=== PATIENT | female | born 1950 | race Two or more races ===

== ENCOUNTER → 2017-09-13 | Outpatient (CLI) | payer MEDICARE, OTHER ==
[2017-09-13 08:30] LABS: ABSOLUTE BASOPHILS # (AUTO) 0.1 10^3/uL (0.0-0.2); ABSOLUTE EOSINOPHILS # (AUTO) 0.3 10^3/uL (0.0-0.6); ABSOLUTE MONOCYTES (AUTO) 0.3 10^3/uL (0.1-1.4); ABSOLUTE NEUT (AUTO) 3.1 10^3/uL (1.7-8.2); BASOPHILS % (AUTO) 1.8 % (0-2); EOSINOPHILS % (AUTO) 4.5 % (0-6); HEMATOCRIT 40.6 % (36.0-47.0); HEMOGLOBIN 13.7 g/dL (12.0-15.5); LYMPHOCYTES % (AUTO) 34.5 % (13-45); MEAN CORPUSCULAR HEMOGLOBIN 28.7 pg (27.0-33.4); MEAN CORPUSCULAR HGB CONC 33.6 g/dL (32.0-36.0); MEAN CORPUSCULAR VOLUME 85 fl (80-97); MONOCYTES % (AUTO) 5.6 % (3-13); PLATELET COUNT 339 10^3/uL (150-450); RED BLOOD COUNT 4.76 10^6/uL (3.72-5.28); RED CELL DISTRIBUTION WIDTH 13.7 % (11.5-14.0); SEGMENTED NEUTROPHILS % (AUTO) 53.6 % (42-78); TOTAL CELLS COUNTED % (AUTO) 100 %; WHITE BLOOD COUNT 5.7 10^3/uL (4.0-10.5)
[2017-09-13 08:55] LABS: ALANINE AMINOTRANSFERASE 44 U/L (9-52); ALBUMIN 4.7 g/dL (3.5-5.0); ALKALINE PHOSPHATASE 122 U/L (38-126); ANION GAP 15 (5-19); ASPARTATE AMINO TRANSFERASE 29 U/L (14-36); BILIRUBIN,DIRECT 0.2 mg/dL (0.0-0.4); BILIRUBIN,TOTAL 0.4 mg/dL (0.2-1.3); BLOOD UREA NITROGEN 23 mg/dL (7-20); CALCIUM 10.5 mg/dL (8.4-10.2); CARBON DIOXIDE 29 mmol/L (22-30); CHLORIDE 102 mmol/L (98-107); GLUCOSE 144 mg/dL (75-110); POTASSIUM 4.2 mmol/L (3.6-5.0); SODIUM 145.8 mmol/L (137-145); TOTAL PROTEIN 7.7 g/dL (6.3-8.2); TRIGLYCERIDES 193 mg/dL (<150)
[2017-09-13 09:06] LABS: DIRECT LDL 101 mg/dL (<100)
[2017-09-13 09:13] LABS: VLDL CHOLESTEROL 38.6 mg/dL (10-31)
== END ==
LOC: OD 07:37
PROVIDERS: ATTEND Internal Medicine
DX: E11.9 Type 2 diabetes mellitus without complications (principal); I10 Essential (primary) hypertension; E78.5 Hyperlipidemia, unspecified; R53.83 Other fatigue
CPT/HCPCS: 36415; 80053; 80061; 83036; 84443; 85025

== ENCOUNTER → 2018-03-07 | Outpatient (CLI) | payer MEDICARE, OTHER ==
[2018-03-07 08:29] LABS: ABSOLUTE BASOPHILS # (AUTO) 0.1 10^3/uL (0.0-0.2); ABSOLUTE EOSINOPHILS # (AUTO) 0.5 10^3/uL (0.0-0.6); ABSOLUTE LYMPHOCYTES (AUTO) 2.1 10^3/uL (0.5-4.7); ABSOLUTE MONOCYTES (AUTO) 0.5 10^3/uL (0.1-1.4); ABSOLUTE NEUT (AUTO) 4.9 10^3/uL (1.7-8.2); BASOPHILS % (AUTO) 1.9 % (0-2); HEMATOCRIT 40.3 % (36.0-47.0); HEMOGLOBIN 13.7 g/dL (12.0-15.5); LYMPHOCYTES % (AUTO) 25.7 % (13-45); MEAN CORPUSCULAR HEMOGLOBIN 28.5 pg (27.0-33.4); MEAN CORPUSCULAR HGB CONC 33.9 g/dL (32.0-36.0); MEAN CORPUSCULAR VOLUME 84 fl (80-97); MONOCYTES % (AUTO) 5.6 % (3-13); PLATELET COUNT 361 10^3/uL (150-450); RED CELL DISTRIBUTION WIDTH 13.7 % (11.5-14.0); SEGMENTED NEUTROPHILS % (AUTO) 60.8 % (42-78); TOTAL CELLS COUNTED % (AUTO) 100 %; WHITE BLOOD COUNT 8.1 10^3/uL (4.0-10.5)
[2018-03-07 08:57] LABS: ALANINE AMINOTRANSFERASE 36 U/L (9-52); ALBUMIN 4.6 g/dL (3.5-5.0); ALKALINE PHOSPHATASE 155 U/L (38-126); ANION GAP 15 (5-19); ASPARTATE AMINO TRANSFERASE 31 U/L (14-36); BILIRUBIN,DIRECT 0.2 mg/dL (0.0-0.4); BILIRUBIN,TOTAL 0.6 mg/dL (0.2-1.3); BLOOD UREA NITROGEN 17 mg/dL (7-20); CALCIUM 10.7 mg/dL (8.4-10.2); CARBON DIOXIDE 26 mmol/L (22-30); CHLORIDE 103 mmol/L (98-107); CHOLESTEROL 214.08 mg/dL (0-200); GLUCOSE 140 mg/dL (75-110); POTASSIUM 4.4 mmol/L (3.6-5.0); SODIUM 143.6 mmol/L (137-145); TOTAL PROTEIN 7.9 g/dL (6.3-8.2); TRIGLYCERIDES 239 mg/dL (<150)
[2018-03-07 09:08] LABS: DIRECT LDL 111 mg/dL (<100)
[2018-03-07 09:13] LABS: VLDL CHOLESTEROL 47.8 mg/dL (10-31)
[2018-03-08 11:39] LABS: CREATININE URINE 69.9 mg/dL (Not Estab.)
[2018-03-08 13:01] LABS: MICROALBUMIN URINE 788.2 ug/mL (Not Estab.)
== END ==
LOC: OD 07:46
PROVIDERS: ATTEND Internal Medicine
DX: E11.9 Type 2 diabetes mellitus without complications (principal); I10 Essential (primary) hypertension; E78.5 Hyperlipidemia, unspecified; R53.83 Other fatigue
CPT/HCPCS: 36415; 80053; 80061; 82043; 82570; 83036; 84443; 85025

== ENCOUNTER → 2018-03-17 | Outpatient (CLI) | payer MEDICARE, OTHER ==
--- NOTE | 2018-03-17 11:03 | RADIOLOGY REPORT (SQ) ---
EXAM DESCRIPTION: MRI LT UPPER JOINT WITHOUT COMPLETED DATE/TIME: 03/17/2018 10:16 am REASON FOR STUDY: INCOMPLETE ROTATOR CUFF TEAR OR RUPTURE, LEFT SHOULDER M75.112 INCOMPLETE ROTATR- CUFF TEAR/RUPTR OF L SHOULDER, NOT COMPARISON: None. TECHNIQUE: Left shoulder images acquired and stored on PACS. Multiplanar imaging to include fat sens itive sequences such as T1, water sensitive sequences such as FST2/STIR, cartilage sensitive sequence s such as FSPD/gradient-echo sequences. LIMITATIONS: None. FINDINGS: BONE MARROW AND CORTEX: No worrisome bone lesions or marrow replacement. No occult fractur es. JOINT OR BURSAL EFFUSION: Trace bursa fluid. GLENO-HUMERAL ARTICULATION: Normal articulation. No subluxation. No cystic change. No osteophytes or cartilage loss. ACROMION AND AC JOINT: No down-sloping or distal spur. Sub-acromial space maintained. No significa nt AC joint arthropathy. ROTATOR CUFF AND INTERVAL: Pronounced tendinosis in the cuff with coronal sequences suggesting diffus e intrasubstance tear. Sparing of bursal and articular surface fibers generally. No fluid-filled ga p in the cuff. More difficult to appreciate the cuff disease on the other sequences. Probable parti al tear also in the subscapularis. Scar in the rotator interval may reflect adhesive capsulitis. LABRUM AND BICEPS LABRAL COMPLEX: Irregular fraying in the superior labrum is suspected. Biceps te ndon looks intact, however. REMAINDER OF LABRUM AND IGHL : Intact as assessed. PERIARTICULAR AND ADJACENT SOFT TISSUES: No masses or abnormal nodes. OTHER: No other significant finding. IMPRESSION: 1. Cuff is heterogeneous. Marked tendinosis at least. Particularly on the coronal sequ ences, intrasubstance relatively high-grade diffuse tear is suggested. No full-thickness gap in the cuff. 2. Other findings as above. Includes frayed appearance of the biceps anchor. TECHNICAL DOCUMENTATION: JOB ID: [id number] [employer]- All Rights Reserved Reading location - IP/workstation name: [email or web address]
== END ==
LOC: RAD 09:33
PROVIDERS: ATTEND Orthopaedic Surgery
DX: M75.112 Incomplete rotator cuff tear or rupture of left shoulder, not specified as traumatic (principal)

== ENCOUNTER → 2018-08-07 | Outpatient (CLI) | payer MEDICARE, OTHER ==
[2018-08-07 10:46] LABS: ABSOLUTE BASOPHILS # (AUTO) 0.1 10^3/uL (0.0-0.2); ABSOLUTE EOSINOPHILS # (AUTO) 0.4 10^3/uL (0.0-0.6); ABSOLUTE LYMPHOCYTES (AUTO) 1.6 10^3/uL (0.5-4.7); ABSOLUTE MONOCYTES (AUTO) 0.4 10^3/uL (0.1-1.4); ABSOLUTE NEUT (AUTO) 4.3 10^3/uL (1.7-8.2); EOSINOPHILS % (AUTO) 5.5 % (0-6); HEMATOCRIT 43.8 % (36.0-47.0); HEMOGLOBIN 14.9 g/dL (12.0-15.5); LYMPHOCYTES % (AUTO) 23.9 % (13-45); MEAN CORPUSCULAR HEMOGLOBIN 28.9 pg (27.0-33.4); MEAN CORPUSCULAR HGB CONC 34.1 g/dL (32.0-36.0); MEAN CORPUSCULAR VOLUME 85 fl (80-97); MONOCYTES % (AUTO) 5.6 % (3-13); PLATELET COUNT 365 10^3/uL (150-450); RED BLOOD COUNT 5.17 10^6/uL (3.72-5.28); TOTAL CELLS COUNTED % (AUTO) 100 %; WHITE BLOOD COUNT 6.8 10^3/uL (4.0-10.5)
[2018-08-07 11:10] LABS: ALANINE AMINOTRANSFERASE 44 U/L (9-52); ALBUMIN 4.7 g/dL (3.5-5.0); ALKALINE PHOSPHATASE 145 U/L (38-126); ANION GAP 12 (5-19); ASPARTATE AMINO TRANSFERASE 32 U/L (14-36); BILIRUBIN,DIRECT 0.3 mg/dL (0.0-0.4); BILIRUBIN,TOTAL 0.6 mg/dL (0.2-1.3); BLOOD UREA NITROGEN 20 mg/dL (7-20); CALCIUM 10.5 mg/dL (8.4-10.2); CARBON DIOXIDE 28 mmol/L (22-30); CHLORIDE 103 mmol/L (98-107); CHOLESTEROL 245.32 mg/dL (0-200); GLUCOSE 133 mg/dL (75-110); SODIUM 142.6 mmol/L (137-145); TOTAL PROTEIN 8.3 g/dL (6.3-8.2); TRIGLYCERIDES 252 mg/dL (<150)
[2018-08-07 11:21] LABS: DIRECT LDL 134 mg/dL (<100)
[2018-08-07 11:23] LABS: VLDL CHOLESTEROL 50.4 mg/dL (10-31)
== END ==
LOC: OD 09:29
PROVIDERS: ATTEND Internal Medicine
DX: E11.65 Type 2 diabetes mellitus with hyperglycemia (principal); I10 Essential (primary) hypertension; E78.5 Hyperlipidemia, unspecified; E83.52 Hypercalcemia
CPT/HCPCS: 36415; 80053; 80061; 83036; 85025

== ENCOUNTER → 2019-06-25 | Outpatient (CLI) | payer MEDICARE, OTHER ==
[2019-06-25 09:52] LABS: ABSOLUTE BASOPHILS # (AUTO) 0.1 10^3/uL (0.0-0.2); ABSOLUTE EOSINOPHILS # (AUTO) 0.4 10^3/uL (0.0-0.6); ABSOLUTE LYMPHOCYTES (AUTO) 1.9 10^3/uL (0.5-4.7); ABSOLUTE MONOCYTES (AUTO) 0.4 10^3/uL (0.1-1.4); ABSOLUTE NEUT (AUTO) 4.5 10^3/uL (1.7-8.2); BASOPHILS % (AUTO) 1.7 % (0-2); HEMOGLOBIN 14.1 g/dL (12.0-15.5); LYMPHOCYTES % (AUTO) 25.2 % (13-45); MEAN CORPUSCULAR HEMOGLOBIN 28.6 pg (27.0-33.4); MEAN CORPUSCULAR HGB CONC 34.5 g/dL (32.0-36.0); MEAN CORPUSCULAR VOLUME 83 fl (80-97); MONOCYTES % (AUTO) 6.1 % (3-13); PLATELET COUNT 326 10^3/uL (150-450); RED BLOOD COUNT 4.94 10^6/uL (3.72-5.28); RED CELL DISTRIBUTION WIDTH 13.6 % (11.5-14.0); TOTAL CELLS COUNTED % (AUTO) 100 %; WHITE BLOOD COUNT 7.4 10^3/uL (4.0-10.5)
[2019-06-25 10:13] LABS: ALBUMIN 4.6 g/dL (3.5-5.0); ALKALINE PHOSPHATASE 163 U/L (38-126); ANION GAP 13 (5-19); ASPARTATE AMINO TRANSFERASE 61 U/L (14-36); BILIRUBIN,DIRECT 0.3 mg/dL (0.0-0.4); BILIRUBIN,TOTAL 0.6 mg/dL (0.2-1.3); BLOOD UREA NITROGEN 21 mg/dL (7-20); CALCIUM 10.2 mg/dL (8.4-10.2); CARBON DIOXIDE 32 mmol/L (22-30); CHLORIDE 96 mmol/L (98-107); GLUCOSE 179 mg/dL (75-110); POTASSIUM 3.4 mmol/L (3.6-5.0); TRIGLYCERIDES 241 mg/dL (<150)
[2019-06-25 10:24] LABS: DIRECT LDL 139 mg/dL (<100)
[2019-06-25 10:27] LABS: VLDL CHOLESTEROL 48.2 mg/dL (10-31)
== END ==
LOC: OD 09:06
PROVIDERS: ATTEND Internal Medicine
DX: I10 Essential (primary) hypertension (principal); E11.9 Type 2 diabetes mellitus without complications; E78.5 Hyperlipidemia, unspecified; R53.83 Other fatigue; K21.9 Gastro-esophageal reflux disease without esophagitis; M19.90 Unspecified osteoarthritis, unspecified site
CPT/HCPCS: 36415; 80053; 80061; 83036; 84443; 85025

== ENCOUNTER → 2019-08-28 | Outpatient (CLI) | payer MEDICARE, OTHER ==
[2019-08-28 08:55] LABS: ALBUMIN 4.6 g/dL (3.5-5.0); ALKALINE PHOSPHATASE 139 U/L (38-126); ANION GAP 9 (5-19); ASPARTATE AMINO TRANSFERASE 49 U/L (14-36); BILIRUBIN,TOTAL 0.5 mg/dL (0.2-1.3); BLOOD UREA NITROGEN 26 mg/dL (7-20); CALCIUM 10.1 mg/dL (8.4-10.2); CARBON DIOXIDE 30 mmol/L (22-30); CHLORIDE 99 mmol/L (98-107); GLUCOSE 162 mg/dL (75-110); POTASSIUM 3.7 mmol/L (3.6-5.0); TOTAL PROTEIN 7.7 g/dL (6.3-8.2)
== END ==
LOC: OD 07:12
PROVIDERS: ATTEND Internal Medicine
DX: E11.9 Type 2 diabetes mellitus without complications (principal); I10 Essential (primary) hypertension
CPT/HCPCS: 36415; 80053; 83036

== ENCOUNTER 2019-09-17 05:14 | Inpatient (IN) | payer MEDICARE, OTHER ==
[2019-09-17] MEDS ORDERED: ONDANSETRON HCL INJ/PF 4 MG/2 ML SDV IV ONE (05:41)
[2019-09-17] MEDS ORDERED: MORPHINE SULFATE 10 MG/ML INJ IV ONE (05:42)
--- NOTE | 2019-09-17 05:49 | ER Document Report ---
ED GI/ - General TRAVEL OUTSIDE OF THE [place] IN LAST 30 DAYS: No <KAUSHIK ONEILL - Last Filed: 09/17/19 07:39> <DANIKA JERONIMO - Last Filed: 09/17/19 09:00> - General Time Seen by Provider: 09/17/19 05:39 Primary Care Provider: JEROD YBARRA MD [Primary Care Provider] - Follow up as needed Notes: Patient is a 69-year-old female who presents emergency department with a chief complaint of abdominal pain. Patient states that she started to have abdominal pain yesterday afternoon. Patient ended up vomiting once prior to arrival. Surgical history includes a hysterectomy. Current medications include: Glimepiride 2 mg p.o. nightly; atorvastatin 40 mg daily; hydrochlorothiazide 25 mg daily; Invokana 300 mg p.o. daily; amlodipine 5 mg p.o. daily; levothyroxine 0.05 mg daily; lansoprazole 15 mg p.o. daily; fiber capsules, vitamin D3; calcium. (NINOKAUSHIK Raya) - Related Data Allergies/Adverse Reactions: aspirin [Aspirin] Allergy (Intermediate, Verified 09/17/19 06:59) Voice changes, feels like pill is hung up in throat Past Medical History - Past Medical History Cardiac Medical History: Reports: Hx Hypertension Denies: Hx Coronary Artery Disease, Hx Heart Attack Pulmonary Medical History: Denies: Hx Asthma, Hx Bronchitis, Hx COPD, Hx Pneumonia Neurological Medical History: Reports: Hx Cerebrovascular Accident - 1991. Denies: Hx Seizures Musculoskeletal Medical History: Reports Hx Arthritis - Hands Past Surgical History: Reports: Hx Hysterectomy. Denies: Hx Pacemaker <NINOKAUSHIK M - Last Filed: 09/17/19 07:39> - Social History Smoking Status: Unknown if Ever Smoked Family History: Reviewed & Not Pertinent <DANIKA JERONIMO - Last Filed: 09/17/19 09:00> Review of Systems <KAUSHIK ONEILL - Last Filed: 09/17/19 07:39> - Review of Systems Notes: REVIEW OF SYSTEMS: CONSTITUTIONAL : Denies recent illness. Denies recent unintentional weight loss. Denies fever, chills, or sweats. EENT: Denies eye, ear, throat, or mouth pain, discharge, or symptoms. Denies nasal or sinus congestion. CARDIOVASCULAR: Denies chest pain. RESPIRATORY: Denies shortness of breath, cough, congestion, difficulty breathing, or wheezing. GASTROINTESTINAL: See HPI. GENITOURINARY: Denies difficulty urinating, burning, blood in urine, urgency or frequency. MUSCULOSKELETAL: Denies neck and back pain. Denies joint pain or swelling. SKIN: Denies rash, itchiness, or lesions HEMATOLOGIC : Denies easy bruising or bleeding. LYMPHATIC: Denies swollen, painful, enlarged glands. NEUROLOGICAL: Denies no numbness or tingling denies weakness. Denies headache. Denies altered mental status. Denies alteration in speech. PSYCHIATRIC: Denies stress, anxiety, alteration in sleep patterns, or depression. All other systems reviewed and negative. (KAUSHIK ONEILL) Physical Exam <KAUSHIK ONEILL - Last Filed: 09/17/19 07:39> - Vital signs Vitals: Temp Pulse Resp BP Pulse Ox 97.5 F 118 H 16 148/96 H 97 09/17/19 05:17 09/17/19 05:17 09/17/19 05:17 09/17/19 05:17 09/17/19 05:17 - Notes Notes: PHYSICAL EXAMINATION: GENERAL: Appears well, healthy, well-nourished, no acute distress. HEAD: Normocephalic, atraumatic. EYES: PERRL, conjunctiva normal, all extraocular movements intact, sclera nonicteric ENT: Moist mucous membranes. NECK: Supple, no noticeable swelling, redness, rash. Normal range of motion. LUNGS: Equal breath sounds bilaterally and clear to auscultation. No wheezes rales or rhonchi. CARDIOVASCULAR: S1-S2, regular rate, regular rhythm. Radial pulses 2+, normal. ABDOMEN: Normoactive bowel sounds. Soft, tender left lower quadrant, no guarding, no rebound tenderness, and no masses palpated. EXTREMITIES: Normal strength and range of motion, no pitting or edema. No cyanosis. NEUROLOGICAL: Moves all extremities upon command. Strength 5/5 in all extremities. PSYCH: Normal mood, normal affect. SKIN: Warm, dry. No rash, lesions, ulcerations noted. Normal skin turgor. (KAUSHIK ONEILL) Course - Laboratory Result Diagrams: 09/17/19 06:28 09/17/19 06:28 <KAUSHIK ONEILL - Last Filed: 09/17/19 07:39> - Laboratory Result Diagrams: 09/17/19 06:28 09/17/19 06:28 <DANIKA JERONIMO - Last Filed: 09/17/19 09:00> - Re-evaluation Re-evalutation: 09/17/19 07:39 Hematology shows a leukocytosis of 11,300 with a left shift. Hemoglobin is elevated and may be suggestive of dehydration. Chemistries do not show a significant change from previous labs drawn on August 27 of this year. Patient's blood glucose is 242. Patient states that she was switched from Januvia to Invokana. She states that since she has been on Invokana, she cannot seem to keep her sugars at a lower reading. Awaiting CT of the abdomen pelvis. (KAUSHIK ONEILL) 09/17/19 08:25 Report received on patient. Awaiting urinalysis and CT findings for disposition 09/17/19 08:[address] Lundberg, Attending. I spoke with Dr. Ghotra, surgery. We discussed the patient's labs in case, requested NG tube, given the patient's medical history requests medical admission with consultation to surgery 09/17/19 08:57 spoke with JAYESH Lara for hospitalist service, working with Dr. Shipman. Case discussed will admit medical floor (DANIKA JERONIMO Merry) - Vital Signs Vital signs: Temp Pulse Resp BP Pulse Ox 97.7 F 78 16 140/73 H 98 09/17/19 08:42 09/17/19 08:42 09/17/19 05:17 09/17/19 08:42 09/17/19 08:42 - Laboratory Laboratory results interpreted by me: 09/17/19 09/17/19 09/17/19 06:28 06:28 07:53 WBC 11.3 H RBC 5.77 H Hgb 16.9 H Hct 48.3 H Lymph % (Auto) 7.7 L Absolute Neuts (auto) 9.9 H Seg Neutrophils % 87.4 H Chloride 92 L Carbon Dioxide 35 H BUN 23 H Est GFR (MDRD) Non-Af 54 L Glucose 242 H Calcium 10.8 H AST 52 H ALT 74 H Alkaline Phosphatase 172 H Total Protein 8.6 H Albumin 5.1 H Urine Protein 30 H Urine Glucose (UA) 1000 H Ur Leukocyte Esterase TRACE H - EKG Interpretation by Me Additional EKG results interpreted by me: 09/17/19 06:58 Sinus rhythm. Rate 98. RI 188; QRS 104; QT 376; QTc 481. No ST elevations noted. (KAUSHIK ONEILL) Discharge <NINOKAUSHIK M - Last Filed: 09/17/19 07:39> - Discharge Admitting Provider: Ramonita (Hospitalist) Unit Admitted: Medical Floor <DANIKA JERONIMO - Last Filed: 09/17/19 09:00> - Discharge Clinical Impression: SBO (small bowel obstruction) Abdominal pain Qualifiers: Abdominal location: generalized Qualified Code(s): R10.84 - Generalized abdominal pain Condition: Stable Disposition: ADMITTED INPATIENT Referrals: JEROD YBARRA MD [Primary Care Provider] - Follow up as needed
[2019-09-17] MEDS ORDERED: NORMAL SALINE 1000 ML 1,000 ML IV ONE (05:50)
[2019-09-17 06:43] LABS: ABSOLUTE BASOPHILS # (AUTO) 0.1 10^3/uL (0.0-0.2); HEMOGLOBIN 16.9 g/dL (12.0-15.5); TOTAL CELLS COUNTED % (AUTO) 100 %
[2019-09-17 06:46] LABS: ABSOLUTE LYMPHOCYTES (AUTO) 0.9 10^3/uL (0.5-4.7); ABSOLUTE MONOCYTES (AUTO) 0.4 10^3/uL (0.1-1.4); ABSOLUTE NEUT (AUTO) 9.9 10^3/uL (1.7-8.2); BASOPHILS % (AUTO) 0.8 % (0-2); EOSINOPHILS % (AUTO) 0.4 % (0-6); HEMATOCRIT 48.3 % (36.0-47.0); LYMPHOCYTES % (AUTO) 7.7 % (13-45); MEAN CORPUSCULAR HEMOGLOBIN 29.3 pg (27.0-33.4); MEAN CORPUSCULAR HGB CONC 34.9 g/dL (32.0-36.0); MEAN CORPUSCULAR VOLUME 84 fl (80-97); MONOCYTES % (AUTO) 3.7 % (3-13); PLATELET COUNT 400 10^3/uL (150-450); RED BLOOD COUNT 5.77 10^6/uL (3.72-5.28); RED CELL DISTRIBUTION WIDTH 13.5 % (11.5-14.0); SEGMENTED NEUTROPHILS % (AUTO) 87.4 % (42-78); WHITE BLOOD COUNT 11.3 10^3/uL (4.0-10.5)
[2019-09-17 07:02] LABS: ALBUMIN 5.1 g/dL (3.5-5.0); ALKALINE PHOSPHATASE 172 U/L (38-126); ANION GAP 12 (5-19); ASPARTATE AMINO TRANSFERASE 52 U/L (14-36); BILIRUBIN,TOTAL 0.8 mg/dL (0.2-1.3); BLOOD UREA NITROGEN 23 mg/dL (7-20); CALCIUM 10.8 mg/dL (8.4-10.2); CARBON DIOXIDE 35 mmol/L (22-30); CHLORIDE 92 mmol/L (98-107); GLUCOSE 242 mg/dL (75-110); POTASSIUM 3.7 mmol/L (3.6-5.0); TOTAL PROTEIN 8.6 g/dL (6.3-8.2)
--- NOTE | 2019-09-17 07:23 | RADIOLOGY REPORT (SQ) ---
AP Portable chest: 09/17/2019 6:21 AM CDT History: 69-year old patient with epigastric pain. Comparison: Chest radiograph performed 02/13/2011. Findings: The cardiomediastinal silhouette is normal in size. No pneumothorax is seen. No acute airspace opacities are seen. No discrete pleural effusion is apparent. Impression: No acute airspace opacities are seen.
[2019-09-17 08:28] LABS: COLOR,URINE LIGHT YELLOW
[2019-09-17 08:29] LABS: APPEARANCE,URINE CLEAR; BILIRUBIN,URINE NEGATIVE (NEGATIVE); GLUCOSE, URINE 1000 mg/dL (NEGATIVE); KETONES,URINE NEGATIVE (NEGATIVE); LEUKOCYTE ESTERASE,URINE TRACE (NEGATIVE); NITRITE,URINE NEGATIVE (NEGATIVE); PROTEIN,URINE 30 mg/dL (NEGATIVE); URINE SPECIFIC GRAVITY 1.045; UROBILINOGEN,URINE NEGATIVE mg/dL (<2.0)
[2019-09-17 08:30] LABS: ADD MANUAL MICROSCOPIC YES; RBC,URINE NONE SEEN /HPF; WBC,URINE RARE /HPF
--- NOTE | 2019-09-17 08:34 | RADIOLOGY REPORT (SQ) ---
EXAM DESCRIPTION: CT ABD/PELVIS WITH IV ONLY IMAGES COMPLETED DATE/TIME: 09/17/2019 7:17 am REASON FOR STUDY: LLQ abd pain COMPARISON: 03/25/2015 TECHNIQUE: CT scan of the abdomen and pelvis performed using helical scanning technique with dynamic intravenous contrast injection. No oral contrast. Images reviewed with lung, soft tissue, and bone windows. Reconstructed coronal and sagittal MPR images reviewed. Delayed images for evaluation of the urinary system also acquired. All images stored on PACS. All CT scanners at this facility use dose modulation, iterative reconstruction, and/or weight based d osing when appropriate to reduce radiation dose to as low as reasonably achievable (ALARA). [facility]: Dose Right [facility]: CareDose [facility]: Dose Right [facility]: Teradose 4D [facility]: [employer] CONTRAST TYPE AND DOSE: contrast/concentration: Isovue 350.00 mg/ml; Total Contrast Delivered: 59.0 ml; Total Saline Delivered: 65.0 ml RENAL FUNCTION: Creatinine 1.06 RADIATION DOSE: CT Rad equipment meets quality standard of care and radiation dose reduction techniq ues were employed. CTDIvol: 4.8 mGy. DLP: 497 mGy-cm.. LIMITATIONS: None. FINDINGS: LOWER CHEST: No significant findings. No nodules or infiltrates. LIVER: Decreased attenuation throughout the liver consistent with fatty infiltration. SPLEEN: Normal size. No focal lesions. PANCREAS: No masses. No significant calcifications. No adjacent inflammation or peripancreatic fluid collections. Pancreatic duct not dilated. GALLBLADDER: No identified stones by CT criteria. No inflammatory changes to suggest cholecystitis. ADRENAL GLANDS: No significant masses or asymmetry. RIGHT KIDNEY AND URETER: No solid masses. Small right renal cysts. No significant calcifications. No hydronephrosis or hydroureter. LEFT KIDNEY AND URETER: No solid masses. Small left renal cysts. No significant calcifications. No hydronephrosis or hydroureter. AORTA AND VESSELS: No aneurysm. No dissection. Renal arteries, SMA, celiac without stenosis. RETROPERITONEUM: No retroperitoneal adenopathy, hemorrhage or masses. BOWEL AND PERITONEAL CAVITY: Mildly distended stomach. There is jejunal dilatation with bowel diamet er measuring up to 3.7 cm. Scattered air-fluid levels. Distal small bowel is decompressed. No foca l mass or mesenteric inflammatory changes. There is no free air. APPENDIX: Not visualized. PELVIS: No mass. No free fluid. Normal bladder. ABDOMINAL WALL: No masses. No hernias. BONES: No significant or acute findings. OTHER: No other significant finding. IMPRESSION: Dilated jejunal loops. Mild gastric distention. Jejunal loops measure up to 3.7 cm. S cattered air-fluid levels. Distal small bowel is decompressed. No focal mesenteric inflammation is identified. No free air. This could represent ileus. Developing small bowel obstruction or partial small bowel obstruction cannot be excluded. TECHNICAL DOCUMENTATION: JOB ID: [id number] Quality ID # [id number]: Final reports with documentation of one or more dose reduction techniques (e.g., Au tomated exposure control, adjustment of the mA and/or kV according to patient size, use of iterative reconstruction technique) 2010 [employer]- All Rights Reserved Reading location - IP/workstation name: [email or web address]
[2019-09-17] MEDS ORDERED: ACETAMINOPHEN 650 MG SUPP.RECT PR PRN (09:34)
[2019-09-17] MEDS ORDERED: ONDANSETRON HCL INJ/PF 4 MG/2 ML SDV IV PRN (09:34)
[2019-09-17] MEDS ORDERED: DEXTROSE 50%-WATER 25 GM/50 ML DISP.SYRIN IV PRN ×4 (09:34→09:40)
[2019-09-17] MEDS ORDERED: DEXTROSE 40% GEL 15 GM TUBE PO PRN ×4 (09:34→09:40)
[2019-09-17] MEDS ORDERED: GLUCAGON,HUMAN RECOMB 1 MG INJ SUBCUT PRN (09:34)
[2019-09-17] MEDS ORDERED: GLUCAGON,HUMAN RECOMB 1 MG INJ IM PRN (09:40)
[2019-09-17 09:58] LABS: INTERNATIONAL RATION (INR) 0.93; PROTHROMBIN TIME 12.5 SEC (11.4-15.4)
[2019-09-17] MEDS: FAMOTIDINE INJ/PF 20 MG/2 ML SDV IV SCH ×2 (10:08→21:22)
[2019-09-17] MEDS: NORMAL SALINE 1000 ML 1,000 ML IV PRN (10:08)
[2019-09-17] MEDS: ENOXAPARIN SODIUM INJ 40 MG/0.4 ML DISP.SYRIN SUBCUT SCH (10:08)
[2019-09-17] MEDS: MORPHINE SULFATE 10 MG/ML INJ IV PRN ×2 (10:26→15:00)
--- NOTE | 2019-09-17 10:42 | RADIOLOGY REPORT (SQ) ---
EXAM DESCRIPTION: KUB/ABDOMEN (SINGLE VIEW) IMAGES COMPLETED DATE/TIME: 09/17/2019 10:23 am REASON FOR STUDY: NT placement COMPARISON: None. NUMBER OF VIEWS: One view. TECHNIQUE: Supine radiographic image of the abdomen acquired. LIMITATIONS: None. FINDINGS: Limited view of the chest anatomy were obtained for NG tube placement. NG tube is in plac e. Tip lies in the left upper quadrant. The tip lies just below the GE junction. IMPRESSION: Limited view of the chest and abdomen were obtained for NG tube placement as described. TECHNICAL DOCUMENTATION: JOB ID: [id number] 2010 [employer]- All Rights Reserved Reading location - IP/workstation name: [email or web address]
[2019-09-17] MEDS: INSULIN LISPRO 100 UNIT/ML 3 ML VIAL SUBCUT SCH ×3 (11:52→21:30)
--- NOTE | 2019-09-17 17:55 | PDOC H&P ---
History of Present Illness Admission Date/PCP: 09/17/19 09:09 JEROD YBARRA MD History of Present Illness: WENDY SERRATO is a 69 year old female comes in with a 1 day history of abdominal pain and vomiting x1 patient states she vomited this morning but started having abdominal pain yesterday. States her only abdominal surgery was a abdominal hysterectomy about 1 to 2 years ago.. Patient states she ate her last meal about 1700 hrs. yesterday.. Patient denies fever chills, no shortness of breath, no chest pain. States her last bowel movement was 0100 hrs. this morning. Patient is to be admitted now for probable small bowel obstruction versus ileus, by CT scan. surgery has recommended n.p.o. and NG tube. Patient does not appear to be septic or toxic patient is hemodynamically stable. Count slightly elevated 11.3 chest x-ray is negative Past Medical History Cardiac Medical History: Reports: Hypertension Denies: Coronary Artery Disease, Myocardial Infarction Pulmonary Medical History: Denies: Asthma, Bronchitis, Chronic Obstructive Pulmonary Disease (COPD), Pneumonia Neurological Medical History: Denies: Seizures Musculoskeltal Medical History: Reports: Arthritis - Hands Psychiatric Medical History: Denies: Depression Hematology: Denies: Anemia Past Surgical History Past Surgical History: Reports: Hysterectomy Denies: Pacemaker Social History Smoking Status: Never Smoker Frequency of Alcohol Use: None - Advance Directive Resuscitation Status: Full Code Family History Family History: Reviewed & Not Pertinent Parental Family History Reviewed: No Children Family History Reviewed: No Sibling(s) Family History Reviewed.: No Medication/Allergy Home Medications: Amlodipine Besylate [Norvasc 5 mg Tablet] 5 mg PO DAILY 09/17/19 Atorvastatin Calcium [Lipitor 40 mg Tablet] 40 mg PO DAILY 09/17/19 Calcium Carbonate/Vitamin D3 [Calcium 600-Vit D3 400 Caplet] 1 tab PO DAILY Canagliflozin [Invokana] 300 mg PO DAILY 09/17/19 Glimepiride 1 mg PO QHS 09/17/19 Hydrochlorothiazide [Hydrodiuril 25 mg Tablet] 25 mg PO DAILY 09/17/19 Lansoprazole 15 mg PO Q6AM 09/17/19 Levothyroxine Sodium [Synthroid 0.05 mg Tablet] 0.05 mg PO Q6AM 09/17/19 Allergies/Adverse Reactions: aspirin [Aspirin] Allergy (Intermediate, Verified 09/17/19 06:59) Voice changes, feels like pill is hung up in throat Review of Systems Constitutional: PRESENT: anorexia Respiratory: ABSENT: cough, hemoptysis Gastrointestinal: PRESENT: abdominal pain, vomiting. ABSENT: constipation, diarrhea, hematemesis, hematochezia, nausea Neurological: ABSENT: abnormal gait, abnormal speech, confusion, dizziness, focal weakness, syncope Psychiatric: ABSENT: anxiety, depression, homidical ideation, suicidal ideation Physical Exam Vital Signs: Temp Pulse Resp BP Pulse Ox 98.7 F 101 H 16 134/66 H 97 09/17/19 15:16 09/17/19 15:16 09/17/19 15:16 09/17/19 15:16 09/17/19 15:16 Intake & Output 09/16/19 09/17/19 09/18/19 06:59 06:59 06:59 Intake Total 1000 Balance 1000 Weight 52.1 kg General appearance: PRESENT: no acute distress, well-developed, well-nourished Respiratory exam: PRESENT: clear to auscultation zia. ABSENT: rales, rhonchi, wheezes Cardiovascular exam: PRESENT: RRR. ABSENT: diastolic murmur, rubs, systolic murmur GI/Abdominal exam: PRESENT: normal bowel sounds, tenderness - Right and left upper quadrants. No guarding no rebound Neurological exam: PRESENT: alert, awake, oriented to person, oriented to place, oriented to time, oriented to situation, CN II-XII grossly intact. ABSENT: motor sensory deficit Psychiatric exam: PRESENT: appropriate affect, normal mood. ABSENT: homicidal ideation, suicidal ideation Results Laboratory Results: 09/17/19 06:28 09/17/19 06:28 09/17/19 09/17/19 09/17/19 06:28 06:28 06:28 WBC 11.3 H RBC 5.77 H Hgb 16.9 H Hct 48.3 H MCV 84 MCH 29.3 MCHC 34.9 RDW 13.5 Plt Count 400 Seg Neutrophils % 87.4 H Sodium 139.4 Potassium 3.7 Chloride 92 L Carbon Dioxide 35 H Anion Gap 12 BUN 23 H Creatinine 1.01 Est GFR ( Amer) > 60 Glucose 242 H Calcium 10.8 H Total Bilirubin 0.8 AST 52 H Alkaline Phosphatase 172 H Total Protein 8.6 H Albumin 5.1 H Amylase 107 Lipase 297.3 Urine Color Urine Appearance Urine pH Ur Specific [place] Urine Protein Urine Glucose (UA) Urine Ketones Urine Blood Urine Nitrite Ur Leukocyte Esterase 09/17/19 07:53 WBC RBC Hgb Hct MCV MCH MCHC RDW Plt Count Seg Neutrophils % Sodium Potassium Chloride Carbon Dioxide Anion Gap BUN Creatinine Est GFR ( Amer) Glucose Calcium Total Bilirubin AST Alkaline Phosphatase Total Protein Albumin Amylase Lipase Urine Color LIGHT YELLOW Urine Appearance CLEAR Urine pH 8.0 Ur Specific [place] 1.045 Urine Protein 30 H Urine Glucose (UA) 1000 H Urine Ketones NEGATIVE Urine Blood NEGATIVE Urine Nitrite NEGATIVE Ur Leukocyte Esterase TRACE H 09/17/19 06:28 Troponin I < 0.012 Impressions: Abdomen/Pelvis CT 09/17/19 05:51 IMPRESSION: Dilated jejunal loops. Mild gastric distention. Jejunal loops measure up to 3.7 cm. Scattered air-fluid levels. Distal small bowel is decompressed. No focal mesenteric inflammation is identified. No free air. This could represent ileus. Developing small bowel obstruction or partial small bowel obstruction cannot be excluded. KUB X-Ray 09/17/19 09:42 IMPRESSION: Limited view of the chest and abdomen were obtained for NG tube placement as described. Assessment and Plan - Diagnosis (1) Hypertension Is this a current diagnosis for this admission?: Yes (2) Diabetes Is this a current diagnosis for this admission?: Yes (3) Hyperlipidemia Is this a current diagnosis for this admission?: Yes (4) Abdominal pain Qualifiers: Abdominal location: generalized Qualified Code(s): R10.84 - Generalized abdominal pain Is this a current diagnosis for this admission?: Yes (5) SBO (small bowel obstruction) Is this a current diagnosis for this admission?: Yes - Plan Summary Summary: Patient had an NG tube placed and will be kept n.p.o.. Patient will be given IV pain medicine and IV fluids as needed. Surgery will reevaluate the patient in the morning and follow her progress. Patient appears to be hemodynamically stable.. - Time Time Spent with patient: 35 or more minutes
[2019-09-18 05:29] LABS: ABSOLUTE LYMPHOCYTES (AUTO) 0.8 10^3/uL (0.5-4.7); ABSOLUTE MONOCYTES (AUTO) 0.6 10^3/uL (0.1-1.4); ABSOLUTE NEUT (AUTO) 3.7 10^3/uL (1.7-8.2); BASOPHILS % (AUTO) 0.4 % (0-2); EOSINOPHILS % (AUTO) 0.4 % (0-6); HEMATOCRIT 40.9 % (36.0-47.0); LYMPHOCYTES % (AUTO) 16.2 % (13-45); MEAN CORPUSCULAR HEMOGLOBIN 29.5 pg (27.0-33.4); MEAN CORPUSCULAR HGB CONC 34.6 g/dL (32.0-36.0); MEAN CORPUSCULAR VOLUME 86 fl (80-97); MONOCYTES % (AUTO) 11.7 % (3-13); PLATELET COUNT 306 10^3/uL (150-450); RED BLOOD COUNT 4.79 10^6/uL (3.72-5.28); RED CELL DISTRIBUTION WIDTH 13.7 % (11.5-14.0); SEGMENTED NEUTROPHILS % (AUTO) 71.3 % (42-78); TOTAL CELLS COUNTED % (AUTO) 100 %; WHITE BLOOD COUNT 5.1 10^3/uL (4.0-10.5)
[2019-09-18 05:31] LABS: HEMOGLOBIN 14.1 g/dL (12.0-15.5)
[2019-09-18 05:54] LABS: ALBUMIN 3.7 g/dL (3.5-5.0); ALKALINE PHOSPHATASE 103 U/L (38-126); ANION GAP 7 (5-19); ASPARTATE AMINO TRANSFERASE 25 U/L (14-36); BILIRUBIN,TOTAL 0.5 mg/dL (0.2-1.3); BLOOD UREA NITROGEN 23 mg/dL (7-20); CALCIUM 8.4 mg/dL (8.4-10.2); CARBON DIOXIDE 29 mmol/L (22-30); CHLORIDE 109 mmol/L (98-107); GLUCOSE 150 mg/dL (75-110); POTASSIUM 3.6 mmol/L (3.6-5.0); TOTAL PROTEIN 6.5 g/dL (6.3-8.2)
[2019-09-18] MEDS: NORMAL SALINE 1000 ML 1,000 ML IV PRN ×2 (06:36→18:19)
[2019-09-18] MEDS: INSULIN LISPRO 100 UNIT/ML 3 ML VIAL SUBCUT SCH ×4 (07:12→21:11)
[2019-09-18] MEDS: MORPHINE SULFATE 10 MG/ML INJ IV PRN (07:33)
--- NOTE | 2019-09-18 08:28 | EKG REPORT ---
SEVERITY:- ABNORMAL ECG - SINUS RHYTHM PROBABLE LEFT VENTRICULAR HYPERTROPHY BORDERLINE INFERIOR Q WAVES CONSIDER ANTERIOR INFARCT ABNORMAL T, CONSIDER ISCHEMIA, LATERAL LEADS : Confirmed by: Yony Chapa 18-Sep-2019 08:28:08
[2019-09-18] MEDS ORDERED: PHENOL/SODIUM PHENOLATE 100 SPRAY/177 ML BOTTLE PO PRN (09:48)
[2019-09-18] MEDS: FAMOTIDINE INJ/PF 20 MG/2 ML SDV IV SCH ×2 (10:02→21:14)
[2019-09-18] MEDS: ENOXAPARIN SODIUM INJ 40 MG/0.4 ML DISP.SYRIN SUBCUT SCH (10:02)
--- NOTE | 2019-09-18 10:46 | RADIOLOGY REPORT (SQ) ---
EXAM DESCRIPTION: KUB/ABDOMEN (SINGLE VIEW) IMAGES COMPLETED DATE/TIME: 09/18/2019 10:17 am REASON FOR STUDY: sbo COMPARISON: AP view of the abdomen from 09/17/2019. NUMBER OF VIEWS: One view. TECHNIQUE: Supine radiographic image of the abdomen acquired. LIMITATIONS: None. FINDINGS: BOWEL GAS PATTERN: Air-filled loops of small bowel in the right lower quadrant that measu re up to 3 cm in diameter. CALCIFICATIONS: No calcifications projecting within the renal fossae or along the expected course of the ureters. SOFT TISSUES: No abnormality. HARDWARE: The tip of the enteric tube projects within the gastric lumen. BONES: Degenerative spondylosis of the lumbar spine. OTHER: No other finding. IMPRESSION: The tip of the enteric tube projects within the gastric lumen. There are air-filled loo ps of small bowel in the right lower quadrant that measure up to 3 cm in diameter. TECHNICAL DOCUMENTATION: JOB ID: [id number] 2010 [employer]- All Rights Reserved Reading location - IP/workstation name: [email or web address]
--- NOTE | 2019-09-18 11:06 | PDOC CONSULTATION ---
Consultation Consult Date: 09/18/19 Provider Consulted: SURGICAL SURGICALIST Consult reason:: Small bowel obstruction History of Present Illness Admission Date/PCP: 09/17/19 09:09 JEROD YBARRA MD Patient complains of: Abdominal pain, nausea History of Present Illness: WENDY SERRATO is a 69 year old female seen in consultation at the request of the hospitalist service. The patient has a several day history of abdominal pain, abdominal distention, and nausea. Her pain is sharp and stabbing. It is located in bilateral lower quadrants. She reports that it rates 5 out of 10. It does not radiate. Nothing makes it better or worse. She denies fevers, c hills, chest pain, shortness of breath, headache, dizziness, orthostasis, malaise, fatigue. She is not recently passed flatus or had a bowel movement. Past Medical History Cardiac Medical History: Reports: Hypertension Denies: Coronary Artery Disease, Myocardial Infarction Pulmonary Medical History: Denies: Asthma, Bronchitis, Chronic Obstructive Pulmonary Disease (COPD), Pneumonia Neurological Medical History: Denies: Seizures Musculoskeltal Medical History: Reports: Arthritis - Hands Psychiatric Medical History: Denies: Depression Hematology: Denies: Anemia Past Surgical History Past Surgical History: Reports: Hysterectomy Denies: Pacemaker Social History Smoking Status: Never Smoker Frequency of Alcohol Use: None Hx Recreational Drug Use: No Hx Prescription Drug Abuse: No - Advance Directive Resuscitation Status: Full Code Family History Family History: Reviewed & Not Pertinent Parental Family History Reviewed: Yes Children Family History Reviewed: Yes Sibling(s) Family History Reviewed.: Yes Medication/Allergy Home Medications: Amlodipine Besylate [Norvasc 5 mg Tablet] 5 mg PO DAILY 09/17/19 Atorvastatin Calcium [Lipitor 40 mg Tablet] 40 mg PO DAILY 09/17/19 Calcium Carbonate/Vitamin D3 [Calcium 600-Vit D3 400 Caplet] 1 tab PO DAILY 09/17/19 Canagliflozin [Invokana] 300 mg PO DAILY 09/17/19 Glimepiride 1 mg PO QHS 09/17/19 Hydrochlorothiazide [Hydrodiuril 25 mg Tablet] 25 mg PO DAILY 09/17/19 Lansoprazole 15 mg PO Q6AM 09/17/19 Levothyroxine Sodium [Synthroid 0.05 mg Tablet] 0.05 mg PO Q6AM 09/17/19 Allergies/Adverse Reactions: aspirin [Aspirin] Allergy (Intermediate, Verified 09/17/19 06:59) Voice changes, feels like pill is hung up in throat Review of Systems Constitutional: ABSENT: anorexia, chills, fatigue, fever(s), weakness Eyes: ABSENT: visual disturbances Nose, Mouth, and Throat: ABSENT: sore throat Cardiovascular: ABSENT: chest pain Respiratory: ABSENT: cough, dyspnea Gastrointestinal: PRESENT: abdominal pain, bloating, nausea Genitourinary: ABSENT: dysuria Musculoskeletal: ABSENT: back pain Integumentary: ABSENT: pruritus, rash Neurological: ABSENT: confusion, convulsions, dizziness Psychiatric: ABSENT: anxiety, depression Endocrine: ABSENT: cold intolerance, heat intolerance Hematologic/Lymphatic: ABSENT: easy bleeding, easy bruising Physical Exam Vital Signs: Temp Pulse Resp BP Pulse Ox 97.6 F 85 16 139/80 H 98 09/18/19 07:21 09/18/19 07:21 09/18/19 07:21 09/18/19 07:21 09/18/19 07:21 Intake & Output 09/17/19 09/18/19 09/19/19 06:59 06:59 06:59 Intake Total 2000 Output Total 900 Balance 1100 Weight 52.1 kg 51.5 kg General appearance: PRESENT: no acute distress, cooperative Head exam: PRESENT: atraumatic, normocephalic Eye exam: PRESENT: EOMI, PERRLA. ABSENT: scleral icterus Mouth exam: PRESENT: moist, neck supple Neck exam: ABSENT: meningismus, tenderness, thyromegaly, tracheal deviation Respiratory exam: PRESENT: unlabored. ABSENT: tachypnea, wheezes Cardiovascular exam: ABSENT: tachycardia - Right Pulses: PRESENT: normal radial pulses Vascular exam: PRESENT: normal capillary refill GI/Abdominal exam: PRESENT: soft, tenderness - mild BLQ. ABSENT: distended Rectal exam: PRESENT: deferred Extremities exam: ABSENT: clubbing Musculoskeletal exam: ABSENT: deformity Neurological exam: PRESENT: alert, awake, oriented to person, oriented to place, oriented to time, oriented to situation, CN II-XII grossly intact. ABSENT: motor sensory deficit Psychiatric exam: ABSENT: agitated, anxious, depressed Focused psych exam: ABSENT: delusional Skin exam: ABSENT: cyanosis, erythema, jaundice Results Laboratory Results: 09/18/19 04:39 09/18/19 04:39 09/18/19 09/18/19 04:39 04:39 WBC 5.1 RBC 4.79 Hgb 14.1 D Hct 40.9 MCV 86 MCH 29.5 MCHC 34.6 RDW 13.7 Plt Count 306 Seg Neutrophils % 71.3 Sodium 144.8 Potassium 3.6 Chloride 109 H Carbon Dioxide 29 Anion Gap 7 BUN 23 H Creatinine 0.94 Est GFR ( Amer) > 60 Glucose 150 H Calcium 8.4 Magnesium 2.6 H Total Bilirubin 0.5 AST 25 Alkaline Phosphatase 103 Total Protein 6.5 Albumin 3.7 09/17/19 06:28 Troponin I < 0.012 Impressions: Abdomen/Pelvis CT 09/17/19 05:51 IMPRESSION: Dilated jejunal loops. Mild gastric distention. Jejunal loops measure up to 3.7 cm. Scattered air-fluid levels. Distal small bowel is decompressed. No focal mesenteric inflammation is identified. No free air. This could represent ileus. Developing small bowel obstruction or partial small bowel obstruction cannot be excluded. KUB X-Ray 09/18/19 00:00 IMPRESSION: The tip of the enteric tube projects within the gastric lumen. There are air-filled loops of small bowel in the right lower quadrant that measure up to 3 cm in diameter. Assessment & Plan - Diagnosis (1) SBO (small bowel obstruction) Is this a current diagnosis for this admission?: Yes - Plan Summary Plan Summary: This is a 69-year-old female with a small bowel obstruction. I believe it is related to her previous hysterectomy, and the scar tissue associated with it. She denies any flatus at this time, however she reports that her abdomen is less tender and distended today. Her x-rays show a mild amount of air within the small intestine. There is air and stool within the colon. It also shows the tip of the NG tube barely reaching the stomach. I will advance her NG tube 8 to 10 cm. Keep NG tube in place today. Okay for ice chips and occasional popsicles. Chloraseptic throat spray. Continue with conservative management for now. If her SBO fails to resolve in the next 48 hours, she may require operative intervention. This has been discussed with the patient, and she is in agreement with the treatment plan.
--- NOTE | 2019-09-18 14:59 | PDOC PROGRESS REPORT ---
Subjective Progress Note for:: 09/18/19 Reason For Visit: SMALL BOWEL OBSTRUCTION, ABDOMINAL PAIN,HYPERTENSI 09/18/2019 Patient admitted for abdominal pain and probable small bowel obstruction Physical Exam Vital Signs: Temp Pulse Resp BP Pulse Ox 98.2 F 89 15 148/72 H 98 09/18/19 10:43 09/18/19 10:43 09/18/19 10:43 09/18/19 10:43 09/18/19 10:43 Intake & Output 09/17/19 09/18/19 09/19/19 06:59 06:59 06:59 Intake Total 2000 Output Total 900 825 Balance 1100 -825 Weight 52.1 kg 51.5 kg General appearance: PRESENT: mild distress Respiratory exam: PRESENT: clear to auscultation zia. ABSENT: rales, rhonchi, wheezes Cardiovascular exam: PRESENT: RRR. ABSENT: diastolic murmur, rubs, systolic murmur Neurological exam: PRESENT: alert, awake, oriented to person, oriented to place, oriented to time, oriented to situation, CN II-XII grossly intact. ABSENT: motor sensory deficit Psychiatric exam: PRESENT: appropriate affect, normal mood. ABSENT: homicidal ideation, suicidal ideation Results Laboratory Results: 09/18/19 04:39 09/18/19 04:39 09/18/19 09/18/19 04:39 04:39 WBC 5.1 RBC 4.79 Hgb 14.1 D Hct 40.9 MCV 86 MCH 29.5 MCHC 34.6 RDW 13.7 Plt Count 306 Seg Neutrophils % 71.3 Sodium 144.8 Potassium 3.6 Chloride 109 H Carbon Dioxide 29 Anion Gap 7 BUN 23 H Creatinine 0.94 Est GFR ( Amer) > 60 Glucose 150 H Calcium 8.4 Magnesium 2.6 H Total Bilirubin 0.5 AST 25 Alkaline Phosphatase 103 Total Protein 6.5 Albumin 3.7 09/17/19 06:28 Troponin I < 0.012 Impressions: Abdomen/Pelvis CT 09/17/19 05:51 IMPRESSION: Dilated jejunal loops. Mild gastric distention. Jejunal loops measure up to 3.7 cm. Scattered air-fluid levels. Distal small bowel is decompressed. No focal mesenteric inflammation is identified. No free air. This could represent ileus. Developing small bowel obstruction or partial small bowel obstruction cannot be excluded. KUB X-Ray 09/18/19 00:00 IMPRESSION: The tip of the enteric tube projects within the gastric lumen. There are air-filled loops of small bowel in the right lower quadrant that measure up to 3 cm in diameter. Assessment and Plan - Diagnosis (1) Hypertension Is this a current diagnosis for this admission?: Yes (2) Diabetes Is this a current diagnosis for this admission?: Yes (3) Hyperlipidemia Is this a current diagnosis for this admission?: Yes (4) Abdominal pain Qualifiers: Abdominal location: generalized Qualified Code(s): R10.84 - Generalized abdominal pain Is this a current diagnosis for this admission?: Yes (5) SBO (small bowel obstruction) Is this a current diagnosis for this admission?: Yes - Plan Summary Summary: Patient had an NG tube placed and will be kept n.p.o.. Patient will be given IV pain medicine and IV fluids as needed. Surgery will reevaluate the patient in the morning and follow her progress. Patient appears to be hemodynamically stable.. 09/18/2019 Temperature 97.6 pulse 85 blood pressure 139/80 O2 sat 98% on room air Count is down to 5.1 from admission level of 11.3 Chemistry grossly normal Hemoglobin A1c is 8.4 KUB this morning shows that the NG tube barely in the stomach. General surgery has advanced the NG tube 8 to 10 cm. Patient will be given ice chips today occasional popsicles per general surgery's recommendation. Patient may be slowly improving and will continue to be observed
--- NOTE | 2019-09-18 22:53 | CDI QUERY ---
CDI Query CDI Review: Dear Provider: To better reflect your patients severity of illness, morbidity, and resource utilization Please specify and document in the Progress Notes and Discharge Summary if you are monitoring / treating / evaluating any of the following conditions: Query Clinical indicators Please indicate if the possible small bowel obstruction is: Complete Incomplete Partial Ileus Unable to determine Other Per H&P: Patient is to be admitted now for probable small bowel obstruction versus ileus, by CT scan. Abdomen/Pelvis CT 09/17/19 05:51 IMPRESSION: Dilated jejunal loops. Mild gastric distention. Jejunal loops measure up to 3.7 cm. Scattered air-fluid levels. Distal small bowel is decompressed. No focal mesenteric inflammation is identified. No free air. This could represent ileus. Developing small bowel obstruction or partial small bowel obstruction cannot be excluded. The terms probable, suspected, likely, possible or still to be ruled out may be used if you are unable to determine the exact nature of a condition. Thank you for your consideration, Clinical Documentation Physician Advisors CRISTINA Hdez RN, BSN RN [email or web address] Office [phone] Office [phone]
[2019-09-19] MEDS: NORMAL SALINE 1000 ML 1,000 ML IV PRN ×2 (03:45→14:46)
[2019-09-19 06:19] LABS: ABSOLUTE EOSINOPHILS # (AUTO) 0.1 10^3/uL (0.0-0.6); ABSOLUTE MONOCYTES (AUTO) 0.5 10^3/uL (0.1-1.4); ABSOLUTE NEUT (AUTO) 3.9 10^3/uL (1.7-8.2); BASOPHILS % (AUTO) 0.7 % (0-2); EOSINOPHILS % (AUTO) 1.6 % (0-6); HEMATOCRIT 42.1 % (36.0-47.0); HEMOGLOBIN 14.1 g/dL (12.0-15.5); LYMPHOCYTES % (AUTO) 17.5 % (13-45); MEAN CORPUSCULAR HGB CONC 33.4 g/dL (32.0-36.0); MEAN CORPUSCULAR VOLUME 87 fl (80-97); MONOCYTES % (AUTO) 9.2 % (3-13); PLATELET COUNT 305 10^3/uL (150-450); RED BLOOD COUNT 4.86 10^6/uL (3.72-5.28); RED CELL DISTRIBUTION WIDTH 13.7 % (11.5-14.0); TOTAL CELLS COUNTED % (AUTO) 100 %; WHITE BLOOD COUNT 5.5 10^3/uL (4.0-10.5)
[2019-09-19] MEDS: INSULIN LISPRO 100 UNIT/ML 3 ML VIAL SUBCUT SCH ×4 (07:58→21:17)
--- NOTE | 2019-09-19 08:31 | PDOC PROGRESS REPORT ---
Subjective Progress Note for:: 09/19/19 Subjective:: no abd pain now Reason For Visit: SMALL BOWEL OBSTRUCTION, ABDOMINAL PAIN,HYPERTENSI Physical Exam Vital Signs: Temp Pulse Resp BP Pulse Ox 97.6 F 84 15 154/65 H 98 09/19/19 07:54 09/19/19 07:54 09/19/19 07:54 09/19/19 07:54 09/19/19 07:54 Intake & Output 09/18/19 09/19/19 09/20/19 06:59 06:59 06:59 Intake Total 1999 2142 Output Total 900 1875 Balance 1100 268 Weight 51.5 kg 52.9 kg General appearance: PRESENT: no acute distress Eye exam: PRESENT: EOMI Ear exam: PRESENT: normal external ear exam Mouth exam: PRESENT: moist Neck exam: PRESENT: full ROM Respiratory exam: PRESENT: clear to auscultation zia Cardiovascular exam: PRESENT: RRR Pulses: PRESENT: normal radial pulses, normal femoral pulses Vascular exam: PRESENT: normal capillary refill Breast: PRESENT: Normal GI/Abdominal exam: PRESENT: soft Rectal exam: PRESENT: deferred Extremities exam: PRESENT: full ROM Musculoskeletal exam: PRESENT: full ROM Neurological exam: PRESENT: awake, oriented to person, oriented to place Psychiatric exam: PRESENT: appropriate affect Skin exam: PRESENT: dry - impression sbo plan small bowel series today iw gastrografin Results Laboratory Results: 09/19/19 05:53 09/18/19 04:39 09/19/19 05:53 WBC 5.5 RBC 4.86 Hgb 14.1 Hct 42.1 MCV 87 MCH 29.0 MCHC 33.4 RDW 13.7 Plt Count 305 Seg Neutrophils % 71.0 09/17/19 06:28 Troponin I < 0.012 Impressions: Abdomen/Pelvis CT 09/17/19 05:51 IMPRESSION: Dilated jejunal loops. Mild gastric distention. Jejunal loops measure up to 3.7 cm. Scattered air-fluid levels. Distal small bowel is decompressed. No focal mesenteric inflammation is identified. No free air. This could represent ileus. Developing small bowel obstruction or partial small bowel obstruction cannot be excluded.
--- NOTE | 2019-09-19 09:28 | RADIOLOGY REPORT (SQ) ---
EXAM DESCRIPTION: KUB/ABDOMEN (SINGLE VIEW) IMAGES COMPLETED DATE/TIME: 09/19/2019 7:47 am REASON FOR STUDY: sbo COMPARISON: Previous day. NUMBER OF VIEWS: One view. TECHNIQUE: Supine radiographic image of the abdomen acquired. LIMITATIONS: None. FINDINGS: BOWEL GAS PATTERN: Persistent dilated loops of small bowel in the left lower quadrant. Ga s and fecal material within nondilated colon. CALCIFICATIONS: No suspicious calcifications. SOFT TISSUES: No gross mass or suggestion of organomegaly. HARDWARE: None in the abdomen. BONES: No acute fracture. No worrisome bone lesions. OTHER: No other significant finding. IMPRESSION: Ileus or partial small bowel obstruction. No significant change. TECHNICAL DOCUMENTATION: JOB ID: [id number] 2010 [employer]- All Rights Reserved Reading location - IP/workstation name: [email or web address]
--- NOTE | 2019-09-19 10:24 | RADIOLOGY REPORT (SQ) ---
EXAM DESCRIPTION: SMALL BOWEL SERIES IMAGES COMPLETED DATE/TIME: 09/19/2019 10:08 am REASON FOR STUDY: small bowel obstruction COMPARISON: CT ABDOMEN AND PELVIS 09/17/2019 AND ABDOMINAL X-RAYS 09/18/2019 AND 09/19/2019 FLUOROSCOPY TIME: 0.7 minutes of fluoroscopy was used. 5 images saved to PACS. LIMITATIONS: None. PROCEDURE: Initial fabric normalizer image of abdomen acquired, followed by administration of oral contrast. Se rial radiographic images acquired. Fluoroscopic images recorded of the terminal ileum and other edinson cated areas. All images stored on PACS. 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 Few scattered air-irina led loops of small bowel identified. Moderate fecal material in the right colon. STOMACH: No significant reflux. Normal distention without abnormality. DUODENUM: Normal mucosal pattern with adequate distention. No displacement or obstruction. JEJUNUM: Mildly dilated jejunal loops with mucosal thickening seen in the distal jejunum. No obstruc tion seen. No transition point identified. ILEUM: Normal mucosal pattern. No dilatation, segmentation, strictures or masses. TERMINAL ILEUM AND ILEO-CECAL VALVE: Normal mucosal pattern without "cobble-stoning" or stricture. N ormal compression. PROXIMAL COLON: Incompletely imaged. No abnormality. OTHER: Transit time of contrast through small bowel is normal with contrast filling of the ascending colon seen on 30 minutes film. IMPRESSION: MILD DILATATION AND MUCOSAL FOLD THICKENING OF THE MID AND DISTAL JEJUNUM WITHOUT EVIDEN CE OF OBSTRUCTION. TRANSITION POINT CANNOT BE IDENTIFIED. ILEAL LOOPS APPEAR NORMAL. COMMENT: Quality ID [id number]: Final reports for procedures using fluoroscopy that document radiation exp osure indices, or exposure time and number of fluorographic images (if radiation exposure indices are not available) TECHNICAL DOCUMENTATION: JOB ID: [id number] 2010 [employer]- All Rights Reserved Reading location - IP/workstation name: [email or web address] [id number]
[2019-09-19] MEDS: FAMOTIDINE INJ/PF 20 MG/2 ML SDV IV SCH ×2 (10:25→21:21)
[2019-09-19] MEDS: ENOXAPARIN SODIUM INJ 40 MG/0.4 ML DISP.SYRIN SUBCUT SCH (10:25)
[2019-09-19] MEDS ORDERED: ONDANSETRON HCL INJ/PF 4 MG/2 ML SDV IV PRN (11:00)
--- NOTE | 2019-09-19 13:46 | PDOC PROGRESS REPORT ---
Subjective Progress Note for:: 09/19/19 Reason For Visit: SMALL BOWEL OBSTRUCTION, ABDOMINAL PAIN,HYPERTENSI 09/19/2019 Partial small bowel obstruction, abdominal pain Physical Exam Vital Signs: Temp Pulse Resp BP Pulse Ox 97.5 F 96 19 169/83 H 99 09/19/19 10:59 09/19/19 10:59 09/19/19 10:59 09/19/19 10:59 09/19/19 10:59 Intake & Output 09/18/19 09/19/19 09/20/19 06:59 06:59 06:59 Intake Total 1999 2142 Output Total 900 1875 Balance 1100 268 Weight 51.5 kg 52.9 kg General appearance: PRESENT: no acute distress, other - Planing of being hungry Respiratory exam: PRESENT: clear to auscultation zia. ABSENT: rales, rhonchi, wheezes Cardiovascular exam: PRESENT: RRR. ABSENT: diastolic murmur, rubs, systolic murmur GI/Abdominal exam: PRESENT: diminished bowel sounds, tenderness - Mild tenderness left lower quadrant much improved from yesterday Neurological exam: PRESENT: alert, awake, oriented to person, oriented to place, oriented to time, oriented to situation, CN II-XII grossly intact. ABSENT: motor sensory deficit Psychiatric exam: PRESENT: appropriate affect, normal mood. ABSENT: homicidal ideation, suicidal ideation Results Laboratory Results: 09/19/19 05:53 09/18/19 04:39 09/19/19 05:53 WBC 5.5 RBC 4.86 Hgb 14.1 Hct 42.1 MCV 87 MCH 29.0 MCHC 33.4 RDW 13.7 Plt Count 305 Seg Neutrophils % 71.0 09/17/19 06:28 Troponin I < 0.012 Impressions: Abdomen/Pelvis CT 09/17/19 05:51 IMPRESSION: Dilated jejunal loops. Mild gastric distention. Jejunal loops measure up to 3.7 cm. Scattered air-fluid levels. Distal small bowel is decompressed. No focal mesenteric inflammation is identified. No free air. This could represent ileus. Developing small bowel obstruction or partial small bowel obstruction cannot be excluded. Small Bowel X-Ray 09/19/19 00:00 IMPRESSION: MILD DILATATION AND MUCOSAL FOLD THICKENING OF THE MID AND DISTAL JEJUNUM WITHOUT EVIDENCE OF OBSTRUCTION. TRANSITION POINT CANNOT BE IDENTIFIED. ILEAL LOOPS APPEAR NORMAL. KUB X-Ray 09/19/19 06:00 IMPRESSION: Ileus or partial small bowel obstruction. No significant change. Assessment and Plan - Diagnosis (1) Hypertension Is this a current diagnosis for this admission?: Yes (2) Diabetes Is this a current diagnosis for this admission?: Yes (3) Hyperlipidemia Is this a current diagnosis for this admission?: Yes (4) Abdominal pain Qualifiers: Abdominal location: generalized Qualified Code(s): R10.84 - Generalized abdominal pain Is this a current diagnosis for this admission?: Yes (5) SBO (small bowel obstruction) Is this a current diagnosis for this admission?: Yes - Plan Summary Summary: Patient had an NG tube placed and will be kept n.p.o.. Patient will be given IV pain medicine and IV fluids as needed. Surgery will reevaluate the patient in the morning and follow her progress. Patient appears to be hemodynamically stable.. 09/18/2019 Temperature 97.6 pulse 85 blood pressure 139/80 O2 sat 98% on room air Count is down to 5.1 from admission level of 11.3 Chemistry grossly normal Hemoglobin A1c is 8.4 KUB this morning shows that the NG tube barely in the stomach. General surgery has advanced the NG tube 8 to 10 cm. Patient will be given ice chips today occasional popsicles per general surgery's recommendation. Patient may be slowly improving and will continue to be observed 09/19/2019 Temperature 97 6, pulse 84 ,blood pressure 154/65, O2 sat 98% on room air White blood cell count 5.5 Chemistry panel is normal General surgery ordered a Gastrografin study. General surgery has reviewed the study. I spoke with general surgery, he does not feel that the patient has a small bow el obstruction and has advanced her diet. Patient is stable will possibly discharge to home tomorrow. I have reviewed resumed her home medicines - Time Time Spent with patient: 25-34 minutes
[2019-09-19] MEDS: HYDROCHLOROTHIAZIDE 25 MG TABLET PO SCH (13:55)
[2019-09-19] MEDS: AMLODIPINE BESYLATE 5 MG TABLET PO SCH (13:55)
[2019-09-19] MEDS ORDERED: GLIMEPIRIDE 1 MG TABLET PO SCH (22:00)
[2019-09-20] MEDS: NORMAL SALINE 1000 ML 1,000 ML IV PRN (02:00)
[2019-09-20 04:52] LABS: ABSOLUTE EOSINOPHILS # (AUTO) 0.1 10^3/uL (0.0-0.6); ABSOLUTE LYMPHOCYTES (AUTO) 1.4 10^3/uL (0.5-4.7); ABSOLUTE MONOCYTES (AUTO) 0.6 10^3/uL (0.1-1.4); BASOPHILS % (AUTO) 0.8 % (0-2); EOSINOPHILS % (AUTO) 2.4 % (0-6); HEMATOCRIT 39.5 % (36.0-47.0); HEMOGLOBIN 13.4 g/dL (12.0-15.5); LYMPHOCYTES % (AUTO) 27.1 % (13-45); MEAN CORPUSCULAR HEMOGLOBIN 28.9 pg (27.0-33.4); MEAN CORPUSCULAR HGB CONC 33.9 g/dL (32.0-36.0); MEAN CORPUSCULAR VOLUME 85 fl (80-97); MONOCYTES % (AUTO) 10.9 % (3-13); PLATELET COUNT 292 10^3/uL (150-450); RED BLOOD COUNT 4.65 10^6/uL (3.72-5.28); SEGMENTED NEUTROPHILS % (AUTO) 58.8 % (42-78); TOTAL CELLS COUNTED % (AUTO) 100 %; WHITE BLOOD COUNT 5.1 10^3/uL (4.0-10.5)
[2019-09-20] MEDS ORDERED: LEVOTHYROXINE SODIUM 0.05 MG TABLET PO SCH (06:00)
[2019-09-20] MEDS ORDERED: PANTOPRAZOLE SODIUM 20 MG TABLET.DR PO SCH (06:00)
[2019-09-20] MEDS ORDERED: LANSOPRAZOLE 15 MG PO SCH (06:00)
[2019-09-20] MEDS: INSULIN LISPRO 100 UNIT/ML 3 ML VIAL SUBCUT SCH (07:27)
[2019-09-20] MEDS: AMLODIPINE BESYLATE 5 MG TABLET PO SCH (09:35)
[2019-09-20] MEDS: ENOXAPARIN SODIUM INJ 40 MG/0.4 ML DISP.SYRIN SUBCUT SCH (09:35)
[2019-09-20] MEDS: FAMOTIDINE INJ/PF 20 MG/2 ML SDV IV SCH (09:35)
[2019-09-20] MEDS: HYDROCHLOROTHIAZIDE 25 MG TABLET PO SCH (09:36)
[2019-09-20] MEDS ORDERED: ATORVASTATIN CALCIUM 40 MG TABLET PO SCH (10:00)
[2019-09-20] MEDS ORDERED: CALCIUM CARBONATE 600 MG/VITAMIN D3 400 UNIT TABLET PO SCH (10:00)
[2019-09-20] MEDS ORDERED: (PENDING PHARMACY ID) (Canagliflozin [Invokana] 300 MG) PO SCH (10:00)
[2019-09-20 11:00] VITALS: BP 133/63
--- NOTE | 2019-09-20 13:29 | PDOC DISCHARGE SUMMARY ---
Impression - Admit/DC Date/PCP Admission Date/Primary Care Provider: 09/17/19 09:09 JEROD YBARRA MD Discharge Date: 09/20/19 - Discharge Diagnosis (1) Hypertension Is this a current diagnosis for this admission?: Yes (2) Diabetes Is this a current diagnosis for this admission?: Yes (3) Hyperlipidemia Is this a current diagnosis for this admission?: Yes (4) Abdominal pain Is this a current diagnosis for this admission?: Yes (5) SBO (small bowel obstruction) Is this a current diagnosis for this admission?: Yes (6) Hypothyroidism Is this a current diagnosis for this admission?: Yes - Assessment Summary: Patient had an NG tube placed and will be kept n.p.o.. Patient will be given IV pain medicine and IV fluids as needed. Surgery will reevaluate the patient in the morning and follow her progress. Patient appears to be hemodynamically stable.. 09/18/2019 Temperature 97.6 pulse 85 blood pressure 139/80 O2 sat 98% on room air Count is down to 5.1 from admission level of 11.3 Chemistry grossly normal Hemoglobin A1c is 8.4 KUB this morning shows that the NG tube barely in the stomach. General surgery has advanced the NG tube 8 to 10 cm. Patient will be given ice chips today occasional popsicles per general surgery's recommendation. Patient may be slowly improving and will continue to be observed 09/19/2019 Temperature 97 6, pulse 84 ,blood pressure 154/65, O2 sat 98% on room air White blood cell count 5.5 Chemistry panel is normal General surgery ordered a Gastrografin study. General surgery has reviewed the study. I spoke with general surgery, he does not feel that the patient has a small bowel obstruction and has advanced her diet. Patient is stable will possibly discharge to home tomorrow. I have reviewed resumed her home medicines 09/20/2019 She is medically stable for discharge. No prescriptions were written. Patient was admitted on 512 for 1 day history of abdominal pain and vomiting. She has a history of a previous abdominal hysterectomy.. Seen in consultation by surgery on the day of admission who felt like this could be managed conservatively with n.p.o. and NG tube. Patient was doing well and general surgery recommended a Gastrografin study which showed no obstruction. Recommended pulling G-tube and advancing her diet which she is done well with patient has had small bowel movements and is tolerating foods Told to go home and continue her soft diet for the next 3 days and then after that advance as tolerated. She was told not to take any laxatives or medication for diarrhea. Told to follow-up with her primary care provider in 5 to 7 days. At the time of discharge today her white count is normal 5.1 when she was admitted it was 11.3 hemoglobin stable at 13.4 Small bowel series done yesterday shows mild dilatation mucosal fold thickening of the mid and distal jejunum out evidence of obstruction. Patient had all of her questions answered and seems satisfied with her care - Additional Information Resuscitation Status: Full Code Discharge Diet: Other (Comments) Discharge Activity: Activity As Tolerated Referrals: JEROD YBARRA MD [Primary Care Provider] - 09/26/19 10:15 am Home Medications: Amlodipine Besylate [Norvasc 5 mg Tablet] 5 mg PO DAILY 09/17/19 Atorvastatin Calcium [Lipitor 40 mg Tablet] 40 mg PO DAILY 09/17/19 Calcium Carbonate/Vitamin D3 [Calcium 600-Vit D3 400 Caplet] 1 tab PO DAILY 09/17/19 Canagliflozin [Invokana] 300 mg PO DAILY 09/17/19 Glimepiride 1 mg PO QHS 09/17/19 Hydrochlorothiazide [Hydrodiuril 25 mg Tablet] 25 mg PO DAILY 09/17/19 Lansoprazole 15 mg PO Q6AM 09/17/19 Levothyroxine Sodium [Synthroid 0.05 mg Tablet] 0.05 mg PO Q6AM 09/17/19 Acetaminophen [Tylenol 650 mg Supp] 650 mg KS Q4HP PRN supp.rect 09/20/19 History of Present Illiness History of Present Illness: WENDY SERRATO is a 69 year old female comes in with a 1 day history of abdominal pain and vomiting x1 patient states she vomited this morning but started having abdominal pain yesterday. States her only abdominal surgery was a abdominal hysterectomy about 1 to 2 years ago.. Patient states she ate her last meal about 1700 hrs. yesterday.. Patient denies fever chills, no shortness of breath, no chest pain. States her last bowel movement was 0100 hrs. this morning. Patient is to be admitted now for probable small bowel obstruction versus ileus, by CT scan. surgery has recommended n.p.o. and NG tube. Patient does not appear to be septic or toxic patient is hemodynamically stable. Count slightly elevated 11.3 chest x-ray is negative Physical Exam Vital Signs: Temp Pulse Resp BP Pulse Ox 97.8 F 56 L 18 133/63 H 98 09/20/19 10:58 09/20/19 10:58 09/20/19 10:58 09/20/19 10:58 09/20/19 10:58 Intake & Output 09/19/19 09/20/19 09/21/19 06:59 06:59 06:59 Intake Total 2143 3250 Output Total 1875 Balance 268 3250 Weight 52.9 kg 52.9 kg Results Laboratory Results: WBC 5.1 10^3/uL (4.0-10.5) 09/20/19 04:14 RBC 4.65 10^6/uL (3.72-5.28) 09/20/19 04:14 Hgb 13.4 g/dL (12.0-15.5) 09/20/19 04:14 Hct 39.5 % (36.0-47.0) 09/20/19 04:14 MCV 85 fl (80-97) 09/20/19 04:14 MCH 28.9 pg (27.0-33.4) 09/20/19 04:14 MCHC 33.9 g/dL (32.0-36.0) 09/20/19 04:14 RDW 14.0 % (11.5-14.0) 09/20/19 04:14 Plt Count 292 10^3/uL (150-450) 09/20/19 04:14 Lymph % (Auto) 27.1 % (13-45) 09/20/19 04:14 [place] % (Auto) 10.9 % (3-13) 09/20/19 04:14 Eos % (Auto) 2.4 % (0-6) 09/20/19 04:14 Baso % (Auto) 0.8 % (0-2) 09/20/19 04:14 Absolute Neuts (auto) 3.0 10^3/uL (1.7-8.2) 09/20/19 04:14 Absolute Lymphs (auto) 1.4 10^3/uL (0.5-4.7) 09/20/19 04:14 Absolute Monos (auto) 0.6 10^3/uL (0.1-1.4) 09/20/19 04:14 Absolute Eos (auto) 0.1 10^3/uL (0.0-0.6) 09/20/19 04:14 Absolute Basos (auto) 0.0 10^3/uL (0.0-0.2) 09/20/19 04:14 Seg Neutrophils % 58.8 % (42-78) 09/20/19 04:14 PT 12.5 SEC (11.4-15.4) 09/17/19 06:25 INR 0.93 09/17/19 06:25 APTT 34.3 SEC (23.5-35.8) 09/18/19 04:39 Sodium 144.8 mmol/L (137-145) 09/18/19 04:39 Potassium 3.6 mmol/L (3.6-5.0) 09/18/19 04:39 Chloride 109 mmol/L (98-107) H 09/18/19 04:39 Carbon Dioxide 29 mmol/L (22-30) 09/18/19 04:39 Anion Gap 7 (5-19) 09/18/19 04:39 BUN 23 mg/dL (7-20) H 09/18/19 04:39 Creatinine 0.94 mg/dL (0.52-1.25) 09/18/19 04:39 Est GFR ( Amer) > 60 (>60) 09/18/19 04:39 Est GFR (MDRD) Non-Af 59 (>60) L 09/18/19 04:39 Glucose 150 mg/dL (75-110) H 09/18/19 04:39 POC Glucose 112 mg/dL (70-110) H 09/20/19 06:36 Hemoglobin A1c % 8.4 % (4.7-6.0) H 09/18/19 04:39 Calcium 8.4 mg/dL (8.4-10.2) 09/18/19 04:39 Magnesium 2.6 mg/dL (1.6-2.3) H 09/18/19 04:39 Total Bilirubin 0.5 mg/dL (0.2-1.3) 09/18/19 04:39 Direct Bilirubin 0.0 mg/dL (0.0-0.4) 09/18/19 04:39 Neonat Total Bilirubin Not Reportable 09/18/19 04:39 Neonat Direct Bilirubin Not Reportable 09/18/19 04:39 Neonat Indirect Bili Not Reportable 09/18/19 04:39 AST 25 U/L (14-36) 09/18/19 04:39 ALT 44 U/L (<35) H 09/18/19 04:39 Alkaline Phosphatase 103 U/L (38-126) 09/18/19 04:39 Troponin I < 0.012 ng/mL 09/17/19 06:28 Total Protein 6.5 g/dL (6.3-8.2) 09/18/19 04:39 Albumin 3.7 g/dL (3.5-5.0) 09/18/19 04:39 Amylase 107 U/L (30-110) 09/17/19 06:28 Lipase 297.3 U/L (23-300) 09/17/19 06:28 Urine Color LIGHT YELLOW 09/17/19 07:53 Urine Appearance CLEAR 09/17/19 07:53 Urine pH 8.0 (5.0-9.0) 09/17/19 07:53 Ur Specific [place] 1.045 09/17/19 07:53 Urine Protein 30 mg/dL (NEGATIVE) H 09/17/19 07:53 Urine Glucose (UA) 1000 mg/dL (NEGATIVE) H 09/17/19 07:53 Urine Ketones NEGATIVE mg/dL (NEGATIVE) 09/17/19 07:53 Urine Blood NEGATIVE (NEGATIVE) 09/17/19 07:53 Urine Nitrite NEGATIVE (NEGATIVE) 09/17/19 07:53 Urine Bilirubin NEGATIVE (NEGATIVE) 09/17/19 07:53 Urine Urobilinogen NEGATIVE mg/dL (<2.0) 09/17/19 07:53 Ur Leukocyte Esterase TRACE (NEGATIVE) H 09/17/19 07:53 Urine RBC NONE SEEN /HPF 09/17/19 07:53 Urine WBC RARE /HPF 09/17/19 07:53 Urine Ascorbic Acid NEGATIVE (NEGATIVE) 09/17/19 07:53 09/17/19 06:28 Troponin I < 0.012 Impressions: Abdomen/Pelvis CT 09/17/19 05:51 IMPRESSION: Dilated jejunal loops. Mild gastric distention. Jejunal loops measure up to 3.7 cm. Scattered air-fluid levels. Distal small bowel is decompressed. No focal mesenteric inflammation is identified. No free air. This could represent ileus. Developing small bowel obstruction or partial small bowel obstruction cannot be excluded. KUB X-Ray 09/17/19 09:42 IMPRESSION: Limited view of the chest and abdomen were obtained for NG tube placement as described. KUB X-Ray 09/18/19 00:00 IMPRESSION: The tip of the enteric tube projects within the gastric lumen. There are air-filled loops of small bowel in the right lower quadrant that measure up to 3 cm in diameter. Small Bowel X-Ray 09/19/19 00:00 IMPRESSION: MILD DILATATION AND MUCOSAL FOLD THICKENING OF THE MID AND DISTAL JEJUNUM WITHOUT EVIDENCE OF OBSTRUCTION. TRANSITION POINT CANNOT BE IDENTIFIED. ILEAL LOOPS APPEAR NORMAL. KUB X-Ray 09/19/19 06:00 IMPRESSION: Ileus or partial small bowel obstruction. No significant change. Stroke Is this a Stroke Patient?: No Acute Heart Failure - Is this a Heart Failure Patient?: No
== END 2019-09-20 11:17 | disposition home or self-care (01) | DRG 390 ==
LOC: ER 05:14 → EH 09:09 → 4W 11:47 → 4N 09-19 14:21
PROVIDERS: ADMIT Hospitalist; ATTEND Physician Assistant
PROC: 0D9670Z Drainage of Stomach with Drainage Device, Via Natural or Artificial Opening (ICD-10-PCS; principal; 2019-09-17)
DX: K56.600 Partial intestinal obstruction, unspecified as to cause (principal); I10 Essential (primary) hypertension; E11.9 Type 2 diabetes mellitus without complications; E78.5 Hyperlipidemia, unspecified; E03.9 Hypothyroidism, unspecified; M13.842 Other specified arthritis, left hand; M13.841 Other specified arthritis, right hand; Z90.710 Acquired absence of both cervix and uterus; Z79.899 Other long term (current) drug therapy; Z79.84 Long term (current) use of oral hypoglycemic drugs; Z88.6 Allergy status to analgesic agent; Z86.73 Personal history of transient ischemic attack (TIA), and cerebral infarction without residual deficits
CPT/HCPCS: 36415; 71045; 74018; 74177; 74250; 80053; 81001; 82150; 82962; 83036; 83690; 83735; 84484; 85025; 85610; 85730; 93005; 93010; 96361; 96374; 96375; 99285; J1650; J1815; J2270; J2405; J3490; J7030; S0028

== ENCOUNTER → 2019-12-04 | Outpatient (CLI) | payer MEDICARE, OTHER ==
[2019-12-04 09:17] LABS: ABSOLUTE BASOPHILS # (AUTO) 0.1 10^3/uL (0.0-0.2); ABSOLUTE EOSINOPHILS # (AUTO) 0.4 10^3/uL (0.0-0.6); ABSOLUTE LYMPHOCYTES (AUTO) 2.2 10^3/uL (0.5-4.7); ABSOLUTE MONOCYTES (AUTO) 0.4 10^3/uL (0.1-1.4); ABSOLUTE NEUT (AUTO) 3.2 10^3/uL (1.7-8.2); BASOPHILS % (AUTO) 1.3 % (0-2); EOSINOPHILS % (AUTO) 6.7 % (0-6); HEMATOCRIT 45.1 % (36.0-47.0); HEMOGLOBIN 15.2 g/dL (12.0-15.5); LYMPHOCYTES % (AUTO) 35.3 % (13-45); MEAN CORPUSCULAR HEMOGLOBIN 28.4 pg (27.0-33.4); MEAN CORPUSCULAR HGB CONC 33.6 g/dL (32.0-36.0); MEAN CORPUSCULAR VOLUME 84 fl (80-97); MONOCYTES % (AUTO) 5.8 % (3-13); PLATELET COUNT 313 10^3/uL (150-450); RED BLOOD COUNT 5.35 10^6/uL (3.72-5.28); RED CELL DISTRIBUTION WIDTH 14.2 % (11.5-14.0); SEGMENTED NEUTROPHILS % (AUTO) 50.9 % (42-78); TOTAL CELLS COUNTED % (AUTO) 100 %; WHITE BLOOD COUNT 6.2 10^3/uL (4.0-10.5)
[2019-12-04 09:30] LABS: ALBUMIN 4.6 g/dL (3.5-5.0); ALKALINE PHOSPHATASE 125 U/L (38-126); ANION GAP 10 (5-19); ASPARTATE AMINO TRANSFERASE 47 U/L (14-36); BILIRUBIN,TOTAL 0.6 mg/dL (0.2-1.3); BLOOD UREA NITROGEN 25 mg/dL (7-20); CALCIUM 10.6 mg/dL (8.4-10.2); CARBON DIOXIDE 31 mmol/L (22-30); CHLORIDE 100 mmol/L (98-107); GLUCOSE 134 mg/dL (75-110)
== END ==
LOC: OD 08:10
PROVIDERS: ATTEND Internal Medicine
DX: E11.9 Type 2 diabetes mellitus without complications (principal); I10 Essential (primary) hypertension; E78.5 Hyperlipidemia, unspecified
CPT/HCPCS: 36415; 80053; 83036; 85025

== ENCOUNTER 2020-02-24 22:22 | Inpatient (IN) | payer MEDICARE, OTHER ==
--- NOTE | 2020-02-24 23:28 | ER Document Report ---
ED Medical Screen (RME) - General Chief Complaint: Abdominal Pain Stated Complaint: ABDOMINAL PAIN Time Seen by Provider: 02/24/20 23:26 Primary Care Provider: JEROD YBARRA MD [Primary Care Provider] - Follow up as needed Mode of Arrival: Ambulatory Information source: Patient Notes: HPI; 69-year-old female presents to the emergency room complaining of sharp stabbing left lower quadrant pain that started earlier today. Denies any nausea, vomiting, no fevers, no urinary symptoms. No diarrhea. No COVID-19 exposure. States has been taking Tylenol without relief. Drove self to the emergency room. PE: Alert and oriented x3. Mild distress noted. Lungs: Clear to auscultation without rales, rhonchi, wheezes. Heart: Regular rate rhythm without murmurs, rubs, gallops. Unable to do full abdominal exam in triage. I have greeted and performed a rapid initial assessment of this patient. A comprehensive ED assessment and evaluation of the patient, analysis of test results and completion of the medical decision making process will be conducted by additional ED providers. I have specifically instructed the patient or family members with the patient to immediately return to any nursing staff should anything change in the patient's condition or with their chief complaint. TRAVEL OUTSIDE OF THE [place] IN LAST 30 DAYS: No - Related Data Allergies/Adverse Reactions: aspirin [Aspirin] Allergy (Intermediate, Verified 09/17/19 06:59) Voice changes, feels like pill is hung up in throat Past Medical History - Past Medical History Cardiac Medical History: Reports: Hx Hypertension Denies: Hx Coronary Artery Disease, Hx Heart Attack Pulmonary Medical History: Denies: Hx Asthma, Hx Bronchitis, Hx COPD, Hx Pneumonia Neurological Medical History: Reports: Hx Cerebrovascular Accident - 1991. Denies: Hx Seizures Musculoskeltal Medical History: Reports Hx Arthritis - Hands Psychiatric Medical History: Denies: Hx Depression Past Surgical History: Reports: Hx Hysterectomy. Denies: Hx Pacemaker Physical Exam - Vital signs Vitals: Temp Pulse Resp BP Pulse Ox 97.7 F 85 16 154/77 H 97 02/24/20 22:45 02/24/20 22:45 02/24/20 22:45 02/24/20 22:45 02/24/20 22:45 Course - Vital Signs Vital signs: Temp Pulse Resp BP Pulse Ox 97.7 F 85 16 154/77 H 97 10/19/20 22:45 02/24/20 22:45 02/24/20 22:45 02/24/20 22:45 02/24/20 22:45 Doctor's Discharge - Discharge Referrals: JEROD YBARRA MD [Primary Care Provider] - Follow up as needed
[2020-02-25 00:14] LABS: ABSOLUTE BASOPHILS # (AUTO) 0.1 10^3/uL (0.0-0.2); ABSOLUTE EOSINOPHILS # (AUTO) 0.2 10^3/uL (0.0-0.6); ABSOLUTE LYMPHOCYTES (AUTO) 1.3 10^3/uL (0.5-4.7); ABSOLUTE MONOCYTES (AUTO) 0.6 10^3/uL (0.1-1.4); ABSOLUTE NEUT (AUTO) 13.1 10^3/uL (1.7-8.2); BASOPHILS % (AUTO) 0.5 % (0-2); EOSINOPHILS % (AUTO) 1.5 % (0-6); HEMATOCRIT 49.5 % (36.0-47.0); HEMOGLOBIN 16.8 g/dL (12.0-15.5); LYMPHOCYTES % (AUTO) 8.6 % (13-45); MEAN CORPUSCULAR HEMOGLOBIN 28.3 pg (27.0-33.4); MEAN CORPUSCULAR VOLUME 83 fl (80-97); MONOCYTES % (AUTO) 4.1 % (3-13); PLATELET COUNT 320 10^3/uL (150-450); RED BLOOD COUNT 5.94 10^6/uL (3.72-5.28); RED CELL DISTRIBUTION WIDTH 14.6 % (11.5-14.0); SEGMENTED NEUTROPHILS % (AUTO) 85.3 % (42-78); TOTAL CELLS COUNTED % (AUTO) 100 %; WHITE BLOOD COUNT 15.3 10^3/uL (4.0-10.5)
[2020-02-25 00:19] LABS: APPEARANCE,URINE CLEAR; BILIRUBIN,URINE NEGATIVE (NEGATIVE); COLOR,URINE YELLOW; GLUCOSE, URINE >=500 mg/dL (NEGATIVE); KETONES,URINE NEGATIVE (NEGATIVE); LEUKOCYTE ESTERASE,URINE NEGATIVE (NEGATIVE); NITRITE,URINE NEGATIVE (NEGATIVE); PROTEIN,URINE 100 mg/dL (NEGATIVE); UROBILINOGEN,URINE NEGATIVE mg/dL (<2.0)
[2020-02-25 00:33] LABS: ALKALINE PHOSPHATASE 140 U/L (38-126); ANION GAP 13 (5-19); ASPARTATE AMINO TRANSFERASE 34 U/L (14-36); BILIRUBIN,DIRECT 0.3 mg/dL (0.0-0.4); BILIRUBIN,TOTAL 0.7 mg/dL (0.2-1.3); BLOOD UREA NITROGEN 31 mg/dL (7-20); CALCIUM 11.2 mg/dL (8.4-10.2); CARBON DIOXIDE 31 mmol/L (22-30); CHLORIDE 96 mmol/L (98-107); GLUCOSE 192 mg/dL (75-110); POTASSIUM 3.8 mmol/L (3.6-5.0); TOTAL PROTEIN 8.1 g/dL (6.3-8.2)
[2020-02-25] MEDS ORDERED: ONDANSETRON HCL INJ/PF 4 MG/2 ML SDV IV ONE (05:55)
[2020-02-25] MEDS ORDERED: RINGERS SOLUTION,LACTATED 1,000 ML IV ONE ×3 (06:42→09:27)
--- NOTE | 2020-02-25 07:00 | RADIOLOGY REPORT (SQ) ---
EXAM: CT Abdomen and Pelvis With Intravenous Contrast EXAM DATE/TIME: 02/25/2020 6:12 AM CLINICAL HISTORY: The patient is 69 years old and is Female; LLQ pain. CREAT 0.96 TECHNIQUE: Axial computed tomography images of the abdomen and pelvis with intravenous contrast. Sagittal and coronal reformatted images were created and reviewed. This CT exam was performed using one or more of the following dose reduction techniques: automated exposure control, adjustment of the mA and/or kV according to patient size, and/or use of iterative reconstruction technique. COMPARISON: CT abdomen pelvis from 09/17/2019 FINDINGS: LUNG BASES: Minimal bibasilar atelectasis. ABDOMEN: LIVER: There is mild diffuse fatty infiltration of the liver. No obvious liver mass. GALLBLADDER AND BILE DUCTS: Unremarkable. No calcified stones. No significant biliary ductal dilatation. PANCREAS: Unremarkable. No ductal dilation. No obvious mass. SPLEEN: Unremarkable. No splenomegaly. ADRENALS: Unremarkable. No adrenal nodules or masses identified. KIDNEYS AND URETERS: Small bilateral renal cysts. No solid renal mass visualized. No hydronephrosis. No renal or ureteral stones. STOMACH AND BOWEL: There is mild dilatation of a few fluid-filled small bowel loops in the left hemiabdomen. There is gradual transition to normal small bowel diameter at the level of the left lower quadrant and left upper pelvis. There is feces-like material within the small bowel at this gradual transition. Findings suggest low-grade small bowel obstruction. A similar appearance is seen on the prior study, though the small bowel is slightly less dilated on this exam. No significant bowel wall thickening appreciated. PELVIS: APPENDIX: The appendix is not definitively visualized. However, there are no inflammatory changes seen at the expected location of the appendix to suggest appendicitis. BLADDER: Unremarkable. No obvious mass. REPRODUCTIVE: The patient is status post hysterectomy. ABDOMEN and PELVIS: INTRAPERITONEAL SPACE: Unremarkable. No free air. No significant fluid collection. BONES/JOINTS: Mild degenerative changes of the spine. No acute fracture. No dislocation. SOFT TISSUES: Small lipoma noted within the medial aspect of the right breast. This is unchanged. VASCULATURE: Atherosclerotic calcifications are noted. No aortic aneurysm. LYMPH NODES: No significant lymph node enlargement. IMPRESSION: Mild dilatation of small bowel loops in the left hemiabdomen, with somewhat gradual transition to normal small bowel diameter at the level of the left lower quadrant and upper pelvis. There is feces-like material within the small bowel at this gradual transition. Findings are suspicious for low-grade small bowel obstruction. A similar appearance is seen on the prior study, though the small bowel is slightly less dilated on this exam.
--- NOTE | 2020-02-25 07:09 | ER Document Report ---
Entered by GWEN RETANA SCRIBE 02/25/20 0636 Acting as scribe for:SHAE HINKLE MD ED GI/ - General Chief Complaint: Upper Abdominal Pain Stated Complaint: ABDOMINAL PAIN Time Seen by Provider: 02/24/20 23:26 Primary Care Provider: JEROD YBARRA MD [Primary Care Provider] - Follow up as needed Mode of Arrival: Ambulatory Information source: Patient Notes: This 69 year old female patient with a history of diverticulitis presents to the ED today with complaints of sharp LLQ abdominal pain that started yesterday afternoon. Patient states that the pain comes and goes. She reports associated nausea and vomiting, but denies any nausea at this time. She mentions that the pain is similar to when she had a small bowel obstruction in 09/2019 except for vomiting and "pooping." TRAVEL OUTSIDE OF THE [place] IN LAST 30 DAYS: No - Related Data Allergies/Adverse Reactions: aspirin [Aspirin] Allergy (Intermediate, Verified 09/17/19 06:59) Voice changes, feels like pill is hung up in throat Past Medical History - General Information source: Patient, [facility] Records - Social History Smoking Status: Never Smoker Cigarette use (# per day): No Chew tobacco use (# tins/day): No Smoking Education Provided: No Frequency of alcohol use: None Drug Abuse: None Family History: Reviewed & Not Pertinent Patient has suicidal ideation: No Patient has homicidal ideation: No - Past Medical History Cardiac Medical History: Reports: Hx Hypercholesterolemia, Hx Hypertension Neurological Medical History: Reports: Hx Cerebrovascular Accident - 1991 Endocrine Medical History: Reports: Hx Diabetes Mellitus Type 2, Hx Hypothyroidism GI Medical History: Reports: Hx Diverticulitis Musculoskeletal Medical History: Reports Hx Arthritis - Hands Past Surgical History: Reports: Hx Hysterectomy Review of Systems - Review of Systems Constitutional: No symptoms reported EENT: No symptoms reported Cardiovascular: No symptoms reported Respiratory: No symptoms reported Gastrointestinal: See HPI Genitourinary: No symptoms reported Female Genitourinary: No symptoms reported Musculoskeletal: No symptoms reported Skin: No symptoms reported Hematologic/Lymphatic: No symptoms reported Neurological/Psychological: No symptoms reported Physical Exam - Vital signs Vitals: Temp 98.4 F 02/24/20 22:23 Interpretation: Normal - General General appearance: Alert In distress: None - HEENT Head: Normocephalic, Atraumatic Eyes: Normal Pupils: PERRL Mucous membranes: Dry - Respiratory Respiratory status: No respiratory distress Chest status: Nontender Breath sounds: Normal Chest palpation: Normal - Cardiovascular Rhythm: Regular Heart sounds: Normal auscultation Murmur: No Friction rub: No Gallop: None auscultated - Abdominal Inspection: Normal Distension: No distension Bowel sounds: Hypoactive - Diminished bowel sounds Tenderness: Tender - LLQ tenderness to palpation Organomegaly: No organomegaly - Back Back: Normal, Nontender - Extremities General upper extremity: Normal inspection General lower extremity: Normal inspection. No: Edema - Neurological Neuro grossly intact: Yes Orientation: AAOx4 Maria Luz Coma Scale Eye Opening: Spontaneous [place] Coma Scale Verbal: Oriented [place] Coma Scale Motor: Obeys Commands [place] Coma Scale Total: 15 - Psychological Associated symptoms: Normal affect, Normal mood - Skin Skin Temperature: Warm Skin Moisture: Dry Skin Color: Normal Course - Vital Signs Vital signs: Temp Pulse Resp BP Pulse Ox 98.4 F 93 16 140/84 H 96 02/24/20 23:00 02/24/20 23:00 02/24/20 23:00 02/24/20 23:00 02/24/20 23:00 - Laboratory Result Diagrams: 02/24/20 23:56 02/24/20 23:56 Laboratory results interpreted by me: 02/24/20 02/24/20 02/24/20 23:56 23:56 23:56 WBC 15.3 H RBC 5.94 H Hgb 16.8 H Hct 49.5 H RDW 14.6 H Lymph % (Auto) 8.6 L Absolute Neuts (auto) 13.1 H Seg Neutrophils % 85.3 H Chloride 96 L Carbon Dioxide 31 H BUN 31 H Est GFR (MDRD) Non-Af 57 L Glucose 192 H Hemoglobin A1c % Calcium 11.2 H ALT 44 H Alkaline Phosphatase 140 H Lipase 317.8 H Urine Protein 100 H Urine Glucose (UA) >=500 H 02/24/20 23:56 WBC RBC Hgb Hct RDW Lymph % (Auto) Absolute Neuts (auto) Seg Neutrophils % Chloride Carbon Dioxide BUN Est GFR (MDRD) Non-Af Glucose Hemoglobin A1c % 7.8 H Calcium ALT Alkaline Phosphatase Lipase Urine Protein Urine Glucose (UA) - Diagnostic Test Radiology reviewed: Image reviewed, Reports reviewed - IV contrasted CT scan of the abdomen pelvis shows low-grade small bowel obstruction developing. Similar to 09/17/2019. - EKG Interpretation by Me EKG shows normal: Sinus rhythm, [place], Intervals. abnormal: QRS Complexes - Suspect old inferior FL, borderline R wave progression in the anterior leads, ST-T Waves - Nonspecific anterolateral T abnormalities Rate: Tachycardia - 100 Heart block present: 1st Degree When compared to previous EKG there are: No significant change - Consults Dr. Galindo Time consulted: 09:30 Consulted provider: will come to ER Discharge - Discharge Clinical Impression: SBO (small bowel obstruction), Dehydration Leukocytosis Qualifiers: Leukocytosis type: unspecified Qualified Code(s): D72.829 - Elevated white blood cell count, unspecified Condition: Stable Disposition: ADMITTED INPATIENT Admitting Provider: Josie (Hospitalist) Unit Admitted: Medical Floor Referrals: JEROD YBARRA MD [Primary Care Provider] - Follow up as needed I personally performed the services described in the documentation, reviewed and edited the documentation which was dictated to the scribe in my presence, and it accurately records my words and actions.
[2020-02-25] MEDS ORDERED: LIDOCAINE 2% VISCOUS SOLN 15 ML UDCUP ONE (08:42)
[2020-02-25] MEDS ORDERED: LIDOCAINE 2% VISCOUS SOLN 15 ML UDCUP PO ONE (09:03)
--- NOTE | 2020-02-25 10:05 | EKG REPORT ---
SEVERITY:- ABNORMAL ECG - SINUS TACHYCARDIA FIRST DEGREE AV BLOCK PROBABLE INFERIOR INFARCT, AGE INDETERMINATE BORDERLINE R WAVE PROGRESSION, ANTERIOR LEADS NONSPECIFIC T ABNORMALITIES, ANT-LAT LEADS : Confirmed by: Steven Lao MD 25-Feb-2020 10:04:37
[2020-02-25] MEDS ORDERED: GLUCAGON,HUMAN RECOMB 1 MG INJ SUBCUT PRN (12:12)
[2020-02-25] MEDS ORDERED: ONDANSETRON HCL INJ/PF 4 MG/2 ML SDV IV PRN (12:12)
[2020-02-25] MEDS ORDERED: DEXTROSE 50%-WATER 25 GM/50 ML DISP.SYRIN IV PRN ×2 (12:12)
[2020-02-25] MEDS ORDERED: IPRATROPIUM/ALBUTEROL 0.5-2.5 MG/3 ML AMPUL NEB PRN (12:12)
[2020-02-25] MEDS ORDERED: PROMETHAZINE HCL INJ 25 MG/1 ML VIAL IV PRN (12:12)
[2020-02-25] MEDS ORDERED: ACETAMINOPHEN 325 MG TABLET NG PRN (12:12)
[2020-02-25] MEDS ORDERED: DEXTROSE 40% GEL 15 GM TUBE PO PRN ×2 (12:12)
[2020-02-25] MEDS ORDERED: TEMAZEPAM 7.5 MG CAPSULE NG PRN (12:12)
[2020-02-25] MEDS ORDERED: PHARMACY COMMUNICATION ORDER MC NR (12:15)
[2020-02-25] MEDS ORDERED: HYDRALAZINE HCL INJ/PF 20 MG/1 ML SDV IV PRN (12:16)
[2020-02-25] MEDS ORDERED: METOPROLOL TARTRATE PF/INJ 5 MG/5 ML SDV IV PRN (12:16)
--- NOTE | 2020-02-25 12:52 | RADIOLOGY REPORT (SQ) ---
EXAM DESCRIPTION: KUB/ABDOMEN (SINGLE VIEW) IMAGES COMPLETED DATE/TIME: 02/25/2020 12:40 pm REASON FOR STUDY: Check Placement of NG Tube COMPARISON: None. NUMBER OF VIEWS: One view. TECHNIQUE: Supine radiographic image of the upper abdomen acquired. LIMITATIONS: None. FINDINGS: BOWEL GAS PATTERN: Dilated small bowel loops. CALCIFICATIONS: No suspicious calcifications. SOFT TISSUES: No gross mass or suggestion of organomegaly. HARDWARE: Nasogastric tube, tip in the stomach. BONES: No acute fracture. No worrisome bone lesions. OTHER: No other significant finding. IMPRESSION: SATISFACTORY POSITION OF THE NASOGASTRIC TUBE. TECHNICAL DOCUMENTATION: JOB ID: [id number] 2010 [employer]- All Rights Reserved Reading location - IP/workstation name: [email or web address]
[2020-02-25] MEDS: HEPARIN SOD (PORCINE) 5,000 UNIT/ML 1 ML VIAL SUBCUT SCH ×2 (14:57→22:01)
[2020-02-25] MEDS: NORMAL SALINE 1000 ML 1,000 ML IV PRN (17:23)
--- NOTE | 2020-02-25 17:42 | PDOC H&P ---
History of Present Illness Admission Date/PCP: 02/25/20 09:46 JEROD YBARRA MD History of Present Illness: WENDY SERRATO is a 69 year old female past medical history of hysterectomy, recurrent small bowel obstruction with spontaneous resolution, hypertension, diabetes, hyperlipidemia, presenting to ED complaining of generalized abdominal pain which is 5/5, constant, colicky, nonradiating, no relieving or exacerbating factor, associated with nausea and vomiting and not being able to pass flatus, patient denies any history of gastric malignancy, any other GI surgery except for hysterectomy in the 90s, any recent gastroenteritis, any fever, chills, chest pain, shortness of breath. In ED CT abdomen showed mild dilation of small bowel loops in the left hemiabdomen, with somewhat gradual transition to normal small bowel diameter at the level of the left lower quadrant and upper pelvis, there is feces-like material within the small bowel at this gradual transition. Findings are suspicious for low-grade small bowel obstruction. Hospitalist consulted for admission. Past Medical History Cardiac Medical History: Reports: Hyperlipidema, Hypertension Denies: Coronary Artery Disease, Myocardial Infarction Pulmonary Medical History: Denies: Asthma, Bronchitis, Chronic Obstructive Pulmonary Disease (COPD), Pneumonia Neurological Medical History: Denies: Seizures Endocrine Medical History: Reports: Diabetes Mellitus Type 2, Hypothyroidism GI Medical History: Reports: Diverticulitis Musculoskeltal Medical History: Reports: Arthritis - Hands Psychiatric Medical History: Denies: Depression Hematology: Denies: Anemia Past Surgical History Past Surgical History: Reports: Hysterectomy Denies: Pacemaker Social History Smoking Status: Never Smoker Electronic Cigarette use?: No Frequency of Alcohol Use: None Hx Recreational Drug Use: No Hx Prescription Drug Abuse: No Family History Family History: Reviewed & Not Pertinent Parental Family History Reviewed: Yes Children Family History Reviewed: Yes Sibling(s) Family History Reviewed.: Yes Medication/Allergy Home Medications: Amlodipine Besylate [Norvasc 5 mg Tablet] 5 mg PO DAILY 09/17/19 Calcium Carbonate/Vitamin D3 [Calcium 600-Vit D3 400 Caplet] 1 tab PO DAILY 09/17/19 Glimepiride 1 mg PO QHS 09/17/19 Hydrochlorothiazide [Hydrodiuril 25 mg Tablet] 25 mg PO DAILY 09/17/19 Levothyroxine Sodium [Synthroid 0.05 mg Tablet] 0.05 mg PO Q6AM 09/17/19 Rosuvastatin Calcium [Crestor] 20 mg PO QHS 02/25/20 Sitagliptin Phosphate [Januvia 50 mg Tablet] 100 mg PO DAILY 02/25/20 Allergies/Adverse Reactions: aspirin [Aspirin] Allergy (Intermediate, Verified 02/25/20 09:51) Voice changes, feels like pill is hung up in throat Review of Systems Review of Systems: as per hpi Physical Exam Vital Signs: Temp Pulse Resp BP Pulse Ox 98.2 F 86 17 169/77 H 96 02/25/20 16:25 02/25/20 16:25 02/25/20 16:25 02/25/20 16:25 02/25/20 16:25 Intake & Output 02/24/20 02/25/20 02/26/20 06:59 06:59 06:59 Intake Total 3000 Output Total 200 Balance 2800 Weight 51.9 kg 50.4 kg General appearance: PRESENT: no acute distress, well-developed, well-nourished Head exam: PRESENT: atraumatic, normocephalic Respiratory exam: PRESENT: clear to auscultation zia. ABSENT: rales, rhonchi, wheezes Cardiovascular exam: PRESENT: RRR. ABSENT: diastolic murmur, rubs, systolic murmur GI/Abdominal exam: PRESENT: normal bowel sounds, soft, tenderness. ABSENT: distended, guarding, mass, organolmegaly, rebound Neurological exam: PRESENT: alert, awake, oriented to person, oriented to place, oriented to time, oriented to situation, CN II-XII grossly intact. ABSENT: motor sensory deficit Skin exam: PRESENT: dry, intact, warm. ABSENT: cyanosis, rash Results Laboratory Results: 02/24/20 23:56 02/24/20 23:56 02/24/20 02/24/20 02/24/20 23:56 23:56 23:56 WBC 15.3 H RBC 5.94 H Hgb 16.8 H Hct 49.5 H MCV 83 MCH 28.3 MCHC 34.0 RDW 14.6 H Plt Count 320 Seg Neutrophils % 85.3 H Sodium 139.5 Potassium 3.8 Chloride 96 L Carbon Dioxide 31 H Anion Gap 13 BUN 31 H Creatinine 0.96 Est GFR ( Amer) > 60 Glucose 192 H Lactic Acid Calcium 11.2 H Total Bilirubin 0.7 AST 34 Alkaline Phosphatase 140 H Total Protein 8.1 Albumin 5.0 Lipase 317.8 H Urine Color YELLOW Urine Appearance CLEAR Urine pH 5.0 Ur Specific [place] 1.030 Urine Protein 100 H Urine Glucose (UA) >=500 H Urine Ketones NEGATIVE Urine Blood NEGATIVE Urine Nitrite NEGATIVE Ur Leukocyte Esterase NEGATIVE Urine WBC (Auto) 0 Urine RBC (Auto) 1 02/25/20 15:23 WBC RBC Hgb Hct MCV MCH MCHC RDW Plt Count Seg Neutrophils % Sodium Potassium Chloride Carbon Dioxide Anion Gap BUN Creatinine Est GFR ( Amer) Glucose Lactic Acid 1.3 Calcium Total Bilirubin AST Alkaline Phosphatase Total Protein Albumin Lipase Urine Color Urine Appearance Urine pH Ur Specific [place] Urine Protein Urine Glucose (UA) Urine Ketones Urine Blood Urine Nitrite Ur Leukocyte Esterase Urine WBC (Auto) Urine RBC (Auto) 02/24/20 02/24/20 23:56 23:56 Creatine Kinase 81 Troponin I < 0.012 Impressions: Abdomen/Pelvis CT 02/25/20 00:34 IMPRESSION: Mild dilatation of small bowel loops in the left hemiabdomen, with somewhat gradual transition to normal small bowel diameter at the level of the left lower quadrant and upper pelvis. There is feces-like material within the small bowel at this gradual transition. Findings are suspicious for low-grade small bowel obstruction. A similar appearance is seen on the prior study, though the small bowel is slightly less dilated on this exam. KUB X-Ray 02/25/20 12:13 IMPRESSION: SATISFACTORY POSITION OF THE NASOGASTRIC TUBE. Assessment and Plan - Diagnosis (1) SBO (small bowel obstruction) Is this a current diagnosis for this admission?: Yes Plan: History of recurrent small bowel obstruction with spontaneous resolution. History of hysterectomy in the . Denies any recent abdominal surgery. Colonoscopy more than 10 years ago was negative for any malignancy. Denies any family or personal history of gastrointestinal malignancy. Denies any recent gastroenteritis. Denies any history of lymphoma or any other malignancy. Admit to floor, NG tube, bowel rest, monitor electrolytes, monitor volume status, monitor vitals. Surgery consulted for further recommendations. (2) Dehydration Is this a current diagnosis for this admission?: Yes Plan: Due to low p.o. intake. Volume resuscitation guided by volume status. (3) Diabetes Qualifiers: Diabetes mellitus type: type 2 Is this a current diagnosis for this admission?: Yes Plan: Controlled. Hemoglobin A1c 7.8. Diabetic diet. Sliding scale insulin, Accu- Chek, hypoglycemia protocol. (4) Hyperlipidemia Is this a current diagnosis for this admission?: Yes Plan: Resume home meds. Diet and lifestyle modification recommended. (5) Hypertension Is this a current diagnosis for this admission?: Yes Plan: Dehydrated. Normotensive. Resume home meds. Monitor vitals. Adjust meds as needed. Outpatient PCP follow-up. - Time Time Spent with patient: 35 or more minutes Medications reviewed and adjusted accordingly: Yes Anticipated Discharge Disposition: Home with Home Health Anticipated Discharge Timeframe: within 72 hours
[2020-02-25] MEDS: INSULIN LISPRO 100 UNIT/ML 3 ML VIAL SUBCUT SCH (18:23)
--- NOTE | 2020-02-25 20:30 | PDOC CONSULTATION ---
Consultation Consult Date: 02/25/20 Provider Consulted: ALEX KAY Consult reason:: Evaluate bowel obstruction History of Present Illness Admission Date/PCP: 02/25/20 09:46 JEROD YBARRA MD Patient complains of: Abdominal pain History of Present Illness: WENDY SERRATO is a 69 year old female with some prior history of partial bowel obstruction several months ago that resolved with conservative measures and a prior history of total abdominal hysterectomy in the remote past, presenting now with 1 day history of sharp crampy lower abdominal pain along wit h nausea and vomiting. Patient had a bowel movement earlier today that was hard and then turned to some diarrhea. She had been having some abdominal distention but no longer distended after NG tube placement with drainage of the dark fluid. She still has some pain but much less. She denies any fever. Past Medical History Cardiac Medical History: Reports: Hyperlipidema, Hypertension Denies: Coronary Artery Disease, Myocardial Infarction Pulmonary Medical History: Denies: Asthma, Bronchitis, Chronic Obstructive Pulmonary Disease (COPD), Pneumonia Neurological Medical History: Denies: Seizures Endocrine Medical History: Reports: Diabetes Mellitus Type 2, Hypothyroidism GI Medical History: Reports: Diverticulitis Musculoskeltal Medical History: Reports: Arthritis - Hands Psychiatric Medical History: Denies: Depression Hematology: Denies: Anemia Past Surgical History Past Surgical History: Reports: Hysterectomy Denies: Pacemaker Social History Smoking Status: Never Smoker Electronic Cigarette use?: No Frequency of Alcohol Use: None Hx Recreational Drug Use: No Hx Prescription Drug Abuse: No Family History Family History: Reviewed & Not Pertinent Parental Family History Reviewed: Yes Children Family History Reviewed: Yes Sibling(s) Family History Reviewed.: Yes Medication/Allergy Home Medications: Amlodipine Besylate [Norvasc 5 mg Tablet] 5 mg PO DAILY 09/17/19 Calcium Carbonate/Vitamin D3 [Calcium 600-Vit D3 400 Caplet] 1 tab PO DAILY 09/17/19 Glimepiride 1 mg PO QHS 09/17/19 Hydrochlorothiazide [Hydrodiuril 25 mg Tablet] 25 mg PO DAILY 09/17/19 Levothyroxine Sodium [Synthroid 0.05 mg Tablet] 0.05 mg PO Q6AM 09/17/19 Rosuvastatin Calcium [Crestor] 20 mg PO QHS 02/25/20 Sitagliptin Phosphate [Januvia 50 mg Tablet] 100 mg PO DAILY 02/25/20 Allergies/Adverse Reactions: aspirin [Aspirin] Allergy (Intermediate, Verified 02/25/20 09:51) Voice changes, feels like pill is hung up in throat Review of Systems All systems: reviewed and no additional remarkable complaints except as stated Gastrointestinal: PRESENT: as per HPI Physical Exam Vital Signs: Temp Pulse Resp BP Pulse Ox 98.2 F 86 17 169/77 H 96 02/25/20 16:25 02/25/20 16:25 02/25/20 16:25 02/25/20 16:25 02/25/20 16:25 Intake & Output 02/24/20 02/25/20 02/26/20 06:59 06:59 06:59 Intake Total 3000 Output Total 200 Balance 2800 Weight 51.9 kg 50.4 kg General appearance: PRESENT: no acute distress, cooperative Eye exam: PRESENT: conjunctiva pink Neck exam: PRESENT: other - Supple with no masses and no tenderness Respiratory exam: PRESENT: clear to auscultation zia Cardiovascular exam: PRESENT: RRR GI/Abdominal exam: PRESENT: other - Soft, mildly distended, very mild lower a bdominal tenderness without peritoneal signs. NG output currently appears clear. Extremities exam: PRESENT: other - No swelling and no tenderness Neurological exam: PRESENT: alert, awake Psychiatric exam: PRESENT: appropriate affect Skin exam: PRESENT: warm Results Laboratory Results: 02/24/20 23:56 02/24/20 23:56 02/24/20 02/24/20 02/24/20 23:56 23:56 23:56 WBC 15.3 H RBC 5.94 H Hgb 16.8 H Hct 49.5 H MCV 83 MCH 28.3 MCHC 34.0 RDW 14.6 H Plt Count 320 Seg Neutrophils % 85.3 H Sodium 139.5 Potassium 3.8 Chloride 96 L Carbon Dioxide 31 H Anion Gap 13 BUN 31 H Creatinine 0.96 Est GFR ( Amer) > 60 Glucose 192 H Lactic Acid Calcium 11.2 H Total Bilirubin 0.7 AST 34 Alkaline Phosphatase 140 H Total Protein 8.1 Albumin 5.0 Lipase 317.8 H Urine Color YELLOW Urine Appearance CLEAR Urine pH 5.0 Ur Specific [place] 1.030 Urine Protein 100 H Urine Glucose (UA) >=500 H Urine Ketones NEGATIVE Urine Blood NEGATIVE Urine Nitrite NEGATIVE Ur Leukocyte Esterase NEGATIVE Urine WBC (Auto) 0 Urine RBC (Auto) 1 02/25/20 15:23 WBC RBC Hgb Hct MCV MCH MCHC RDW Plt Count Seg Neutrophils % Sodium Potassium Chloride Carbon Dioxide Anion Gap BUN Creatinine Est GFR ( Amer) Glucose Lactic Acid 1.3 Calcium Total Bilirubin AST Alkaline Phosphatase Total Protein Albumin Lipase Urine Color Urine Appearance Urine pH Ur Specific [place] Urine Protein Urine Glucose (UA) Urine Ketones Urine Blood Urine Nitrite Ur Leukocyte Esterase Urine WBC (Auto) Urine RBC (Auto) 02/24/20 02/24/20 23:56 23:56 Creatine Kinase 81 Troponin I < 0.012 Impressions: Abdomen/Pelvis CT 02/25/20 00:34 IMPRESSION: Mild dilatation of small bowel loops in the left hemiabdomen, with somewhat gradual transition to normal small bowel diameter at the level of the left lower quadrant and upper pelvis. There is feces-like material within the small bowel at this gradual transition. Findings are suspicious for low-grade small bowel obstruction. A similar appearance is seen on the prior study, though the small bowel is slightly less dilated on this exam. KUB X-Ray 02/25/20 12:13 IMPRESSION: SATISFACTORY POSITION OF THE NASOGASTRIC TUBE. Assessment & Plan - Diagnosis (1) Partial small bowel obstruction Is this a current diagnosis for this admission?: Yes Plan: Likely due to adhesions related with her hysterectomy. We will try conservative measures with NG tube decompression and IV fluids. Will check abdominal x-rays tomorrow.
[2020-02-25] MEDS: ATORVASTATIN CALCIUM 40 MG TABLET PO SCH (22:00)
[2020-02-25] MEDS ORDERED: (PENDING PHARMACY ID) (Rosuvastatin Calcium [Crestor] 20 MG) PO SCH (22:00)
[2020-02-25] MEDS: FAMOTIDINE INJ/PF 20 MG/2 ML SDV IV SCH (22:01)
--- NOTE | 2020-02-25 23:31 | RADIOLOGY REPORT (SQ) ---
EXAM DESCRIPTION: XR ABDOMEN 1 VIEW (KUB) COMPLETED DATE/TME: 02/25/2020 17:45 CLINICAL HISTORY: 69 years, Female, SBO COMPARISON: Prior study from earlier the same day NUMBER OF VIEWS: One TECHNIQUE: Single frontal view of the abdomen was acquired LIMITATIONS: None. FINDINGS: Enteric drainage tube tip projects over the gastric body. Gas and a moderate amount of stool are noted throughout the large bowel. Minimal, if any small bowel gas is noted, limiting the evaluation of its caliber. No suspicious osseous anomalies or soft tissue calcifications are appreciated. IMPRESSION: Indeterminate bowel gas pattern. Moderate colonic stool load. copyright 2010 [employer]- All Rights Reserved
[2020-02-26] MEDS: INSULIN LISPRO 100 UNIT/ML 3 ML VIAL SUBCUT SCH ×5 (00:38→21:19)
[2020-02-26] MEDS: HEPARIN SOD (PORCINE) 5,000 UNIT/ML 1 ML VIAL SUBCUT SCH ×3 (05:32→22:35)
[2020-02-26] MEDS: LEVOTHYROXINE SODIUM 0.05 MG TABLET PO SCH (05:33)
[2020-02-26] MEDS: NORMAL SALINE 1000 ML 1,000 ML IV PRN ×2 (06:30→18:16)
[2020-02-26 07:25] LABS: ABSOLUTE BASOPHILS # (AUTO) 0.1 10^3/uL (0.0-0.2); ABSOLUTE EOSINOPHILS # (AUTO) 0.3 10^3/uL (0.0-0.6); ABSOLUTE LYMPHOCYTES (AUTO) 1.7 10^3/uL (0.5-4.7); ABSOLUTE MONOCYTES (AUTO) 0.4 10^3/uL (0.1-1.4); BASOPHILS % (AUTO) 0.9 % (0-2); EOSINOPHILS % (AUTO) 4.2 % (0-6); HEMATOCRIT 44.7 % (36.0-47.0); LYMPHOCYTES % (AUTO) 22.7 % (13-45); MEAN CORPUSCULAR HEMOGLOBIN 28.3 pg (27.0-33.4); MEAN CORPUSCULAR HGB CONC 33.6 g/dL (32.0-36.0); MEAN CORPUSCULAR VOLUME 84 fl (80-97); MONOCYTES % (AUTO) 5.1 % (3-13); PLATELET COUNT 277 10^3/uL (150-450); RED BLOOD COUNT 5.31 10^6/uL (3.72-5.28); RED CELL DISTRIBUTION WIDTH 14.5 % (11.5-14.0); SEGMENTED NEUTROPHILS % (AUTO) 67.1 % (42-78); TOTAL CELLS COUNTED % (AUTO) 100 %; WHITE BLOOD COUNT 7.4 10^3/uL (4.0-10.5)
[2020-02-26 07:38] LABS: PROTHROMBIN TIME 12.4 SEC (11.4-15.4)
[2020-02-26 07:58] LABS: ALBUMIN 3.8 g/dL (3.5-5.0); ALKALINE PHOSPHATASE 104 U/L (38-126); ANION GAP 9 (5-19); ASPARTATE AMINO TRANSFERASE 29 U/L (14-36); BILIRUBIN,DIRECT 0.3 mg/dL (0.0-0.4); BILIRUBIN,TOTAL 0.9 mg/dL (0.2-1.3); BLOOD UREA NITROGEN 18 mg/dL (7-20); CALCIUM 9.2 mg/dL (8.4-10.2); CARBON DIOXIDE 29 mmol/L (22-30); CHLORIDE 104 mmol/L (98-107); GLUCOSE 96 mg/dL (75-110); POTASSIUM 3.6 mmol/L (3.6-5.0); TOTAL PROTEIN 6.3 g/dL (6.3-8.2)
[2020-02-26] MEDS ORDERED: INFLUENZA QUAD (6MOS+) 2020-21 VAC 0.5 ML SYR IM ONE (08:00)
--- NOTE | 2020-02-26 08:48 | RADIOLOGY REPORT (SQ) ---
EXAM DESCRIPTION: ABDOMEN 2 VIEWS IMAGES COMPLETED DATE/TIME: 02/26/2020 7:59 am REASON FOR STUDY: Follow-up partial small bowel obstruction COMPARISON: None. NUMBER OF VIEWS: Two views. TECHNIQUE: AP supine and upright views of the abdomen were obtained. LIMITATIONS: None. FINDINGS: FREE AIR: None. LUNG BASES: Left basilar atelectasis. BOWEL GAS PATTERN: No dilated loops of bowel or differential air-fluid levels. CALCIFICATIONS: No calcifications that project within the renal fossae or along the expected course o f the ureters. SOFT TISSUES: No abnormality. HARDWARE: The tip of the enteric tube projects within the gastric lumen. BONES: No acute abnormality. OTHER: No other findings IMPRESSION: Nonobstructive bowel gas pattern. TECHNICAL DOCUMENTATION: JOB ID: [id number] 2010 [employer]- All Rights Reserved Reading location - IP/workstation name: [email or web address]
[2020-02-26] MEDS: AMLODIPINE BESYLATE 5 MG TABLET PO SCH (09:09)
[2020-02-26] MEDS: FAMOTIDINE INJ/PF 20 MG/2 ML SDV IV SCH ×2 (09:16→22:36)
--- NOTE | 2020-02-26 14:46 | PDOC PROGRESS REPORT ---
Subjective Progress Note for:: 02/26/20 Subjective:: WENDY SERRATO is a 69 year old female past medical history of hysterectomy, recurrent small bowel obstruction with spontaneous resolution, hypertension, diabetes, hyperlipidemia, presenting to ED complaining of generalized abdominal pain which is 5/5, constant, colicky, nonradiating, no relieving or exacerbating factor, associated with nausea and vomiting and not being able to pass flatus, patient denies any history of gastric malignancy, any other GI surgery except for hysterectomy in the 90s, any recent gastroenteritis, any fever, chills, chest pain, shortness of breath. In ED CT abdomen showed mild dilation of small bowel loops in the left hemiabdomen, with somewhat gradual transition to normal small bowel diameter at the level of the left lower quadrant and upper pelvis, there is feces-like material within the small bowel at this gradual transition. Findings are suspicious for low-grade small bowel obstruction. Hospitalist consulted for admission. 02/26/2020. No acute events overnight. Patient passing some flatus, repeat KUB does not show any sign of obstruction, patient complaining of mild abdominal pain otherwise denies any nausea, vomiting, diarrhea, constipation, fever, chills. Patient very anxious for NG tube to be removed as it is uncomfortable. Reason For Visit: SBO, ABDOMINAL PAIN Physical Exam Vital Signs: Temp Pulse Resp BP Pulse Ox 97.5 F 81 16 153/70 H 97 02/26/20 08:24 02/26/20 08:24 02/26/20 08:24 02/26/20 08:24 02/26/20 08:24 Intake & Output 02/25/20 02/26/20 02/27/20 06:59 06:59 06:59 Intake Total 4000 Output Total 200 Balance 3800 Weight 51.9 kg 49.6 kg 49.6 kg General appearance: PRESENT: no acute distress, well-developed, well-nourished Head exam: PRESENT: atraumatic, normocephalic Respiratory exam: PRESENT: clear to auscultation zia. ABSENT: rales, rhonchi, wheezes Cardiovascular exam: PRESENT: RRR. ABSENT: diastolic murmur, rubs, systolic murmur GI/Abdominal exam: PRESENT: normal bowel sounds, soft. ABSENT: distended, guarding, mass, organolmegaly, rebound, tenderness Neurological exam: PRESENT: alert, awake, oriented to person, oriented to place, oriented to time, oriented to situation, CN II-XII grossly intact. ABSENT: motor sensory deficit Results Laboratory Results: 02/26/20 06:40 02/26/20 06:40 02/25/20 02/26/20 02/26/20 15:23 06:40 06:40 WBC 7.4 RBC 5.31 H Hgb 15.0 Hct 44.7 MCV 84 MCH 28.3 MCHC 33.6 RDW 14.5 H Plt Count 277 Seg Neutrophils % 67.1 Sodium 141.6 Potassium 3.6 Chloride 104 Carbon Dioxide 29 Anion Gap 9 BUN 18 Creatinine 0.78 Est GFR ( Amer) > 60 Glucose 96 Lactic Acid 1.3 Calcium 9.2 Magnesium 2.3 Total Bilirubin 0.9 AST 29 Alkaline Phosphatase 104 Total Protein 6.3 Albumin 3.8 02/24/20 02/24/20 23:56 23:56 Creatine Kinase 81 Troponin I < 0.012 Impressions: Abdomen/Pelvis CT 02/25/20 00:34 IMPRESSION: Mild dilatation of small bowel loops in the left hemiabdomen, with somewhat gradual transition to normal small bowel diameter at the level of the left lower quadrant and upper pelvis. There is feces-like material within the small bowel at this gradual transition. Findings are suspicious for low-grade small bowel obstruction. A similar appearance is seen on the prior study, though the small bowel is slightly less dilated on this exam. KUB X-Ray 02/25/20 17:45 IMPRESSION: Indeterminate bowel gas pattern. Moderate colonic stool load. copyright 2011 [employer]- All Rights Reserved Abdomen X-Ray 02/26/20 07:00 IMPRESSION: Nonobstructive bowel gas pattern. Assessment and Plan - Diagnosis (1) SBO (small bowel obstruction) Is this a current diagnosis for this admission?: Yes Plan: Repeat KUB negative for obstructive signs. Patient is passing flatus. Bowel sounds were present. History of recurrent small bowel obstruction with spontaneous resolution. History of hysterectomy in the 90s. Denies any recent abdominal surgery. Colonoscopy more than 10 years ago was negative for any malignancy. Denies any family or personal history of gastrointestinal malignancy. Denies any recent gastroenteritis. Denies any history of lymphoma or any other malignancy. Remove NG tube, clear liquid diet, monitor electrolytes, monitor volume status, monitor vitals. Surgery has been consulted. Recommendations noted. No surgical intervention planned at this point. (2) Dehydration Is this a current diagnosis for this admission?: Yes Plan: Due to low p.o. intake. Volume resuscitation guided by volume status. (3) Diabetes Qualifiers: Diabetes mellitus type: type 2 Is this a current diagnosis for this admission?: Yes Plan: Controlled. Hemoglobin A1c 7.8. Diabetic diet. Sliding scale insulin, Accu- Chek, hypoglycemia protocol. (4) Hyperlipidemia Is this a current diagnosis for this admission?: Yes Plan: Resume home meds. Diet and lifestyle modification recommended. (5) Hypertension Is this a current diagnosis for this admission?: Yes Plan: Dehydrated. Normotensive. Resume home meds. Monitor vitals. Adjust meds as needed. Outpatient PCP follow-up. - Time Time Spent with patient: 25-34 minutes Smoking Cessation Education: 3 to 10 minutes Anticipated Discharge Disposition: Home, Self Care Anticipated Discharge Timeframe: within 24 hours
--- NOTE | 2020-02-26 15:21 | PDOC PROGRESS REPORT ---
Subjective Progress Note for:: 02/26/20 Subjective:: 69-year-old female admitted with a partial small bowel obstruction. Her NG tube has been removed and she is currently taking clear liquids. She reports passing some flatus. She denies nausea, vomiting, abdominal pain, abdominal distention, headache, fevers, chills, chest pain, shortness of breath, or other symptoms. Reason For Visit: SBO, ABDOMINAL PAIN Physical Exam Vital Signs: Temp Pulse Resp BP Pulse Ox 97.5 F 81 16 153/70 H 97 02/26/20 08:24 02/26/20 08:24 02/26/20 08:24 02/26/20 08:24 02/26/20 08:24 Intake & Output 02/25/20 02/26/20 02/27/20 06:59 06:59 06:59 Intake Total 4000 Output Total 200 Balance 3800 Weight 51.9 kg 49.6 kg 49.6 kg General appearance: PRESENT: no acute distress, cooperative Head exam: PRESENT: atraumatic, normocephalic Eye exam: PRESENT: EOMI, PERRLA. ABSENT: scleral icterus Mouth exam: PRESENT: moist, neck supple Neck exam: ABSENT: meningismus, tenderness, tracheal deviation Respiratory exam: PRESENT: unlabored. ABSENT: tachypnea, wheezes Cardiovascular exam: ABSENT: tachycardia GI/Abdominal exam: PRESENT: soft. ABSENT: distended, tenderness Rectal exam: PRESENT: deferred Extremities exam: ABSENT: clubbing Musculoskeletal exam: ABSENT: deformity Neurological exam: PRESENT: alert, awake, oriented to person, oriented to place, oriented to time, oriented to situation, CN II-XII grossly intact Psychiatric exam: ABSENT: agitated, anxious, depressed Focused psych exam: ABSENT: delusional Skin exam: ABSENT: cyanosis, erythema, jaundice Results Laboratory Results: 02/26/20 06:40 02/26/20 06:40 02/25/20 02/26/20 02/26/20 15:23 06:40 06:40 WBC 7.4 RBC 5.31 H Hgb 15.0 Hct 44.7 MCV 84 MCH 28.3 MCHC 33.6 RDW 14.5 H Plt Count 277 Seg Neutrophils % 67.1 Sodium 141.6 Potassium 3.6 Chloride 104 Carbon Dioxide 29 Anion Gap 9 BUN 18 Creatinine 0.78 Est GFR ( Amer) > 60 Glucose 96 Lactic Acid 1.3 Calcium 9.2 Magnesium 2.3 Total Bilirubin 0.9 AST 29 Alkaline Phosphatase 104 Total Protein 6.3 Albumin 3.8 02/24/20 02/24/20 23:56 23:56 Creatine Kinase 81 Troponin I < 0.012 Impressions: Abdomen/Pelvis CT 02/25/20 00:34 IMPRESSION: Mild dilatation of small bowel loops in the left hemiabdomen, with somewhat gradual transition to normal small bowel diameter at the level of the left lower quadrant and upper pelvis. There is feces-like material within the small bowel at this gradual transition. Findings are suspicious for low-grade small bowel obstruction. A similar appearance is seen on the prior study, though the small bowel is slightly less dilated on this exam. KUB X-Ray 02/25/20 17:45 IMPRESSION: Indeterminate bowel gas pattern. Moderate colonic stool load. copyright 2010 [employer]- All Rights Reserved Abdomen X-Ray 02/26/20 07:00 IMPRESSION: Nonobstructive bowel gas pattern. Assessment & Plan - Diagnosis (1) Partial small bowel obstruction Is this a current diagnosis for this admission?: Yes - Time Anticipated Discharge Disposition: Home, Self Care Anticipated Discharge Timeframe: within 48 hours - Plan Summary Plan Summary: 69-year-old female with a partial small bowel obstruction. She is passing flatus. Her obstruction appears to be resolving. Her NG tube was removed, and she was started on clear liquids. She appears to be tolerating this relatively well. I will continue to monitor her. If she tolerates clear liquids, may adva nce her diet tomorrow. It is always possible, that if her condition deteriorates, she may require surgery. This was discussed with her at length. She is in agreement with the treatment plan.
[2020-02-26] MEDS: ATORVASTATIN CALCIUM 40 MG TABLET PO SCH (22:36)
[2020-02-27] MEDS: LEVOTHYROXINE SODIUM 0.05 MG TABLET PO SCH (06:08)
[2020-02-27] MEDS: HEPARIN SOD (PORCINE) 5,000 UNIT/ML 1 ML VIAL SUBCUT SCH ×3 (06:08→22:06)
[2020-02-27] MEDS: NORMAL SALINE 1000 ML 1,000 ML IV PRN ×2 (07:36→23:19)
[2020-02-27] MEDS: INSULIN LISPRO 100 UNIT/ML 3 ML VIAL SUBCUT SCH ×4 (07:44→22:04)
--- NOTE | 2020-02-27 09:02 | RADIOLOGY REPORT (SQ) ---
EXAM DESCRIPTION: ABDOMEN 2 VIEWS IMAGES COMPLETED DATE/TIME: 02/27/2020 8:42 am REASON FOR STUDY: Follow-up partial small bowel obstruction COMPARISON: 02/26/2020. NUMBER OF VIEWS: Two views. TECHNIQUE: Supine and erect/decubitus radiographic images of the abdomen acquired. LIMITATIONS: None. FINDINGS: FREE AIR: None. No abnormal gas collections. LUNG BASES: Clear. BOWEL GAS PATTERN: Nonobstructive pattern. No dilated loops or air fluid levels. CALCIFICATIONS: No suspicious calcifications. SOFT TISSUES: No gross mass or suggestion of organomegaly. HARDWARE: None in the abdomen. The nasogastric tube has been removed. BONES: No acute fracture. No worrisome bone lesions. OTHER: No other significant finding. IMPRESSION: NO RADIOGRAPHIC EVIDENCE FOR ACUTE ABDOMINAL DISEASE. TECHNICAL DOCUMENTATION: JOB ID: [id number] 2010 [employer]- All Rights Reserved Reading location - IP/workstation name: [email or web address]
[2020-02-27] MEDS: AMLODIPINE BESYLATE 5 MG TABLET PO SCH (09:33)
[2020-02-27] MEDS: FAMOTIDINE INJ/PF 20 MG/2 ML SDV IV SCH ×2 (09:33→22:07)
--- NOTE | 2020-02-27 10:46 | PDOC PROGRESS REPORT ---
Subjective Progress Note for:: 02/27/20 Subjective:: Feels well. Tolerated clear liquids. Passing gas. About to start solids. Reason For Visit: SBO, ABDOMINAL PAIN Physical Exam Vital Signs: Temp Pulse Resp BP Pulse Ox 97.8 F 66 16 160/66 H 98 02/27/20 07:40 02/27/20 09:14 02/27/20 09:14 02/27/20 07:40 02/27/20 09:14 Intake & Output 02/26/20 02/27/20 02/28/20 06:59 06:59 06:59 Intake Total 4000 3279 Output Total 200 Balance 3800 3279 Weight 49.6 kg 51.9 kg General appearance: PRESENT: no acute distress, cooperative Respiratory exam: PRESENT: clear to auscultation zia Cardiovascular exam: PRESENT: RRR GI/Abdominal exam: PRESENT: other - Soft, nondistended, nontender to palpation. Results Laboratory Results: 02/26/20 06:40 02/26/20 06:40 02/24/20 02/24/20 23:56 23:56 Creatine Kinase 81 Troponin I < 0.012 Impressions: Abdomen/Pelvis CT 02/25/20 00:34 IMPRESSION: Mild dilatation of small bowel loops in the left hemiabdomen, with somewhat gradual transition to normal small bowel diameter at the level of the left lower quadrant and upper pelvis. There is feces-like material within the small bowel at this gradual transition. Findings are suspicious for low-grade small bowel obstruction. A similar appearance is seen on the prior study, though the small bowel is slightly less dilated on this exam. KUB X-Ray 02/25/20 17:45 IMPRESSION: Indeterminate bowel gas pattern. Moderate colonic stool load. copyright 2011 [employer] All Rights Reserved Abdomen X-Ray 02/27/20 07:00 IMPRESSION: NO RADIOGRAPHIC EVIDENCE FOR ACUTE ABDOMINAL DISEASE. Assessment & Plan - Diagnosis (1) Partial small bowel obstruction Is this a current diagnosis for this admission?: Yes Plan: Resolved. If solids tolerated may discharge patient home. I do highly recommend follow-up with gastroenterology for colonoscopy. She has not had one in over 10 years. Surgery service signing off. Please reconsult if there is any questions or issues. - Time Anticipated Discharge Disposition: Home, Self Care Anticipated Discharge Timeframe: within 24 hours
--- NOTE | 2020-02-27 16:36 | PDOC PROGRESS REPORT ---
Subjective Progress Note for:: 02/27/20 Subjective:: WENDY SERRATO is a 69 year old female past medical history of hysterectomy, recurrent small bowel obstruction with spontaneous resolution, hypertension, diabetes, hyperlipidemia, presenting to ED complaining of generalized abdominal pain which is 5/5, constant, colicky, nonradiating, no relieving or exacerbating factor, associated with nausea and vomiting and not being able to pass flatus, patient denies any history of gastric malignancy, any other GI surgery except for hysterectomy in the 90s, any recent gastroenteritis, any fever, chills, chest pain, shortness of breath. In ED CT abdomen showed mild dilation of small bowel loops in the left hemiabdomen, with somewhat gradual transition to normal small bowel diameter at the level of the left lower quadrant and upper pelvis, there is feces-like material within the small bowel at this gradual transition. Findings are suspicious for low-grade small bowel obstruction. Hospitalist consulted for admission. 02/26/2020. No acute events overnight. Patient passing some flatus, repeat KUB does not show any sign of obstruction, patient complaining of mild abdominal pain otherwise denies any nausea, vomiting, diarrhea, constipation, fever, chills. Patient very anxious for NG tube to be removed as it is uncomfortable. 02/27/2020. No acute events overnight. Patient is tolerating clear liquid, di et advanced to follow, patient is passing minimal flatus, has not had a bowel movement, is not having any abdominal pain, denies any shortness of breath, fever, chills, nausea, vomiting, diarrhea. Possible discharge home tomorrow once she is tolerating her p.o. intake and having bowel movements. Reason For Visit: SBO, ABDOMINAL PAIN Physical Exam Vital Signs: Temp Pulse Resp BP Pulse Ox 98.1 F 70 17 144/72 H 96 02/27/20 15:54 02/27/20 15:54 02/27/20 15:54 02/27/20 15:54 02/27/20 15:54 Intake & Output 02/26/20 02/27/20 02/28/20 06:59 06:59 06:59 Intake Total 4000 3279 480 Output Total 200 Balance 3800 3279 480 Weight 49.6 kg 51.9 kg General appearance: PRESENT: no acute distress, well-developed, well-nourished Head exam: PRESENT: atraumatic, normocephalic Respiratory exam: PRESENT: clear to auscultation zia. ABSENT: rales, rhonchi, wheezes Cardiovascular exam: PRESENT: RRR. ABSENT: diastolic murmur, rubs, systolic murmur GI/Abdominal exam: PRESENT: normal bowel sounds, soft. ABSENT: distended, guarding, mass, organolmegaly, rebound, tenderness Extremities exam: PRESENT: full ROM. ABSENT: calf tenderness, clubbing, pedal edema Neurological exam: PRESENT: alert, awake, oriented to person, oriented to place, oriented to time, oriented to situation, CN II-XII grossly intact. ABSENT: motor sensory deficit Results Laboratory Results: 02/26/20 06:40 02/26/20 06:40 02/24/20 02/24/20 23:56 23:56 Creatine Kinase 81 Troponin I < 0.012 Impressions: Abdomen/Pelvis CT 02/25/20 00:34 IMPRESSION: Mild dilatation of small bowel loops in the left hemiabdomen, with somewhat gradual transition to normal small bowel diameter at the level of the left lower quadrant and upper pelvis. There is feces-like material within the small bowel at this gradual transition. Findings are suspicious for low-grade small bowel obstruction. A similar appearance is seen on the prior study, though the small bowel is slightly less dilated on this exam. KUB X-Ray 02/25/20 17:45 IMPRESSION: Indeterminate bowel gas pattern. Moderate colonic stool load. copyright 2011 [employer]- All Rights Reserved Abdomen X-Ray 02/27/20 07:00 IMPRESSION: NO RADIOGRAPHIC EVIDENCE FOR ACUTE ABDOMINAL DISEASE. Assessment and Plan - Diagnosis (1) SBO (small bowel obstruction) Is this a current diagnosis for this admission?: Yes Plan: Repeat KUB negative for obstructive signs. Patient is passing flatus. Bowel sounds were present. History of recurrent small bowel obstruction with spontaneous resolution. History of hysterectomy in the 90s. Denies any recent abdominal surgery. Colonoscopy more than 10 years ago was negative for any malignancy. Denies any family or personal history of gastrointestinal malignancy. Denies any recent gastroenteritis. Denies any history of lymphoma or any other malignancy. Remove NG tube, full liquid diet to be advanced as tolerated, monitor electrolytes, monitor volume status, monitor vitals. Surgery has been consulted. Recommendations noted. No surgical intervention planned at this point. Surgery has signed off. Recommendation is to follow-up as outpatient with gastr oenterology for repeat colonoscopy. (2) Dehydration Is this a current diagnosis for this admission?: Yes Plan: Due to low p.o. intake. Volume resuscitation guided by volume status. (3) Diabetes Qualifiers: Diabetes mellitus type: type 2 Is this a current diagnosis for this admission?: Yes Plan: Controlled. Hemoglobin A1c 7.8. Diabetic diet. Sliding scale insulin, Accu- Chek, hypoglycemia protocol. (4) Hyperlipidemia Is this a current diagnosis for this admission?: Yes Plan: Resume home meds. Diet and lifestyle modification recommended. (5) Hypertension Is this a current diagnosis for this admission?: Yes Plan: Dehydrated. Normotensive. Resume home meds. Monitor vitals. Adjust meds as needed. Outpatient PCP follow-up. - Time Time Spent with patient: 25-34 minutes Anticipated Discharge Disposition: Home, Self Care Anticipated Discharge Timeframe: within 24 hours
[2020-02-27] MEDS ORDERED: HYDRALAZINE HCL 25 MG TABLET PO PRN (21:02)
[2020-02-27] MEDS: ATORVASTATIN CALCIUM 40 MG TABLET PO SCH (22:07)
[2020-02-28] MEDS: LEVOTHYROXINE SODIUM 0.05 MG TABLET PO SCH (05:48)
[2020-02-28] MEDS: HEPARIN SOD (PORCINE) 5,000 UNIT/ML 1 ML VIAL SUBCUT SCH (05:48)
[2020-02-28] MEDS: INSULIN LISPRO 100 UNIT/ML 3 ML VIAL SUBCUT SCH ×2 (08:14→11:27)
[2020-02-28] MEDS ORDERED: LOSARTAN POTASSIUM 25 MG TABLET PO ONE (09:00)
[2020-02-28] MEDS ORDERED: AMLODIPINE BESYLATE 5 MG TABLET PO ONE (09:00)
[2020-02-28] MEDS ORDERED: LOSARTAN POTASSIUM 25 MG TABLET PO SCH (10:00)
[2020-02-28] MEDS: AMLODIPINE BESYLATE 5 MG TABLET PO SCH (10:11)
[2020-02-28] MEDS: FAMOTIDINE INJ/PF 20 MG/2 ML SDV IV SCH (10:12)
[2020-02-28 11:10] VITALS: BP 135/66
--- NOTE | 2020-03-16 10:31 | PDOC DISCHARGE SUMMARY ---
Impression - Admit/DC Date/PCP Admission Date/Primary Care Provider: 02/25/20 09:46 JEROD YBARRA MD Discharge Date: 02/28/20 - Discharge Diagnosis (1) SBO (small bowel obstruction) Is this a current diagnosis for this admission?: Yes (2) Dehydration Is this a current diagnosis for this admission?: Yes (3) Diabetes Is this a current diagnosis for this admission?: Yes (4) Hyperlipidemia Is this a current diagnosis for this admission?: Yes (5) Hypertension Is this a current diagnosis for this admission?: Yes - Additional Information Referrals: KIRSTIN BARBOSA MD [ACTIVE STAFF] - 03/16/20 1:45 pm JEROD YBARRA MD [Primary Care Provider] - 03/09/20 11:00 am Prescriptions: Losartan Potassium [Cozaar] 25 mg PO DAILY 30 Days #30 tablet Home Medications: Amlodipine Besylate [Norvasc 5 mg Tablet] 5 mg PO DAILY 09/17/19 Calcium Carbonate/Vitamin D3 [Calcium 600-Vit D3 400 Caplet] 1 tab PO DAILY 09/17/19 Glimepiride 1 mg PO QHS 09/17/19 Levothyroxine Sodium [Synthroid 0.05 mg Tablet] 0.05 mg PO Q6AM 09/17/19 Rosuvastatin Calcium [Crestor] 20 mg PO QHS 02/25/20 Sitagliptin Phosphate [Januvia 50 mg Tablet] 100 mg PO DAILY 02/25/20 Losartan Potassium [Cozaar] 25 mg PO DAILY 30 Days #30 tablet 02/28/20 History of Present Illiness History of Present Illness: WENDY SERRATO is a 69 year old female past medical history of hysterectomy, recurrent small bowel obstruction with spontaneous resolution, hypertension, diabetes, hyperlipidemia, presenting to ED complaining of generalized abdominal pain which is 5/5, constant, colicky, nonradiating, no relieving or exacerbating factor, associated with nausea and vomiting and not being able to pass flatus, patient denies any history of gastric malignancy, any other GI surgery except for hysterectomy in the 90s, any recent gastroenteritis, any fever, chills, chest pain, shortness of breath. In ED CT abdomen showed mild dilation of small bowel loops in the left hemiabdomen, with somewhat gradual transition to normal small bowel diameter at the level of the left lower quadrant and upper pelvis, there is feces-like material within the small bowel at this gradual transition. Findings are suspicious for low-grade small bowel obstruction. Hospitalist consulted for admission. Hospital Course Hospital Course: (1) SBO (small bowel obstruction) Repeat KUB negative for obstructive signs. Patient is passing flatus. Bowel sounds were present. History of recurrent small bowel obstruction with spontaneous resolution. History of hysterectomy in the 90s. Denies any recent abdominal surgery. Colonoscopy more than 10 years ago was negative for any malignancy. Denies any family or personal history of gastrointestinal malignancy. Denies any recent gastroenteritis. Denies any history of lymphoma or any other malignancy. Remove NG tube, full liquid diet to be advanced as tolerated, monitor electrolytes, monitor volume status, monitor vitals. Surgery has been consulted. Recommendations noted. No surgical intervention planned at this point. Surgery has signed off. Recommendation is to follow-up as outpatient with gastroenterology for repeat colonoscopy. (2) Dehydration Due to low p.o. intake. Volume resuscitation guided by volume status. (3) Diabetes Controlled. Hemoglobin A1c 7.8. Diabetic diet. Sliding scale insulin, Accu- Chek, hypoglycemia protocol. (4) Hyperlipidemia Resume home meds. Diet and lifestyle modification recommended. (5) Hypertension Dehydrated. Normotensive. Resume home meds. Monitor vitals. Adjust meds as needed. Outpatient PCP follow-up. Physical Exam Vital Signs: Temp Pulse Resp BP Pulse Ox 97.8 F 61 16 135/66 H 98 02/28/20 11:07 02/28/20 11:07 02/28/20 11:07 02/28/20 11:07 02/28/20 11:07 General appearance: PRESENT: no acute distress, well-developed, well-nourished Head exam: PRESENT: atraumatic, normocephalic Respiratory exam: PRESENT: clear to auscultation zia. ABSENT: rales, rhonchi, wheezes Cardiovascular exam: PRESENT: RRR. ABSENT: diastolic murmur, rubs, systolic murmur GI/Abdominal exam: PRESENT: normal bowel sounds, soft. ABSENT: distended, guarding, mass, organolmegaly, rebound, tenderness Neurological exam: PRESENT: alert, awake, oriented to person, oriented to place, oriented to time, oriented to situation, CN II-XII grossly intact. ABSENT: motor sensory deficit Results Laboratory Results: WBC 7.4 10^3/uL (4.0-10.5) 02/26/20 06:40 RBC 5.31 10^6/uL (3.72-5.28) H 02/26/20 06:40 Hgb 15.0 g/dL (12.0-15.5) 02/26/20 06:40 Hct 44.7 % (36.0-47.0) 02/26/20 06:40 MCV 84 fl (80-97) 02/26/20 06:40 MCH 28.3 pg (27.0-33.4) 02/26/20 06:40 MCHC 33.6 g/dL (32.0-36.0) 02/26/20 06:40 RDW 14.5 % (11.5-14.0) H 02/26/20 06:40 Plt Count 277 10^3/uL (150-450) 02/26/20 06:40 Lymph % (Auto) 22.7 % (13-45) 02/26/20 06:40 [place] % (Auto) 5.1 % (3-13) 02/26/20 06:40 Eos % (Auto) 4.2 % (0-6) 02/26/20 06:40 Baso % (Auto) 0.9 % (0-2) 02/26/20 06:40 Absolute Neuts (auto) 5.0 10^3/uL (1.7-8.2) 02/26/20 06:40 Absolute Lymphs (auto) 1.7 10^3/uL (0.5-4.7) 02/26/20 06:40 Absolute Monos (auto) 0.4 10^3/uL (0.1-1.4) 02/26/20 06:40 Absolute Eos (auto) 0.3 10^3/uL (0.0-0.6) 02/26/20 06:40 Absolute Basos (auto) 0.1 10^3/uL (0.0-0.2) 02/26/20 06:40 Seg Neutrophils % 67.1 % (42-78) 02/26/20 06:40 PT 12.4 SEC (11.4-15.4) 02/26/20 06:40 INR 0.90 02/26/20 06:40 Sodium 141.6 mmol/L (137-145) 02/26/20 06:40 Potassium 3.6 mmol/L (3.6-5.0) 02/26/20 06:40 Chloride 104 mmol/L (98-107) 02/26/20 06:40 Carbon Dioxide 29 mmol/L (22-30) 02/26/20 06:40 Anion Gap 9 (5-19) 02/26/20 06:40 BUN 18 mg/dL (7-20) 02/26/20 06:40 Creatinine 0.78 mg/dL (0.52-1.25) 02/26/20 06:40 Est GFR ( Amer) > 60 (>60) 02/26/20 06:40 Est GFR (MDRD) Non-Af > 60 (>60) 02/26/20 06:40 Glucose 96 mg/dL (75-110) 02/26/20 06:40 POC Glucose 115 mg/dL (70-110) H 02/28/20 07:52 Hemoglobin A1c % 7.8 % (4.7-6.0) H 02/24/20 23:56 Lactic Acid 1.3 mmol/L (0.7-2.1) 02/25/20 15:23 Calcium 9.2 mg/dL (8.4-10.2) 02/26/20 06:40 Magnesium 2.3 mg/dL (1.6-2.3) 02/26/20 06:40 Total Bilirubin 0.9 mg/dL (0.2-1.3) 02/26/20 06:40 Direct Bilirubin 0.3 mg/dL (0.0-0.4) 02/26/20 06:40 Neonat Total Bilirubin Not Reportable 02/26/20 06:40 Neonat Direct Bilirubin Not Reportable 02/26/20 06:40 Neonat Indirect Bili Not Reportable 02/26/20 06:40 AST 29 U/L (14-36) 02/26/20 06:40 ALT 29 U/L (<35) 02/26/20 06:40 Alkaline Phosphatase 104 U/L (38-126) 02/26/20 06:40 Creatine Kinase 81 U/L (30-135) 02/24/20 23:56 Troponin I < 0.012 ng/mL 02/24/20 23:56 Total Protein 6.3 g/dL (6.3-8.2) 02/26/20 06:40 Albumin 3.8 g/dL (3.5-5.0) 02/26/20 06:40 Lipase 317.8 U/L (23-300) H 02/24/20 23:56 Urine Color YELLOW 02/24/20 23:56 Urine Appearance CLEAR 02/24/20 23:56 Urine pH 5.0 (5.0-9.0) 02/24/20 23:56 Ur Specific [place] 1.030 02/24/20 23:56 Urine Protein 100 mg/dL (NEGATIVE) H 02/24/20 23:56 Urine Glucose (UA) >=500 mg/dL (NEGATIVE) H 02/24/20 23:56 Urine Ketones NEGATIVE mg/dL (NEGATIVE) 02/24/20 23:56 Urine Blood NEGATIVE (NEGATIVE) 02/24/20 23:56 Urine Nitrite NEGATIVE (NEGATIVE) 02/24/20 23:56 Urine Bilirubin NEGATIVE (NEGATIVE) 02/24/20 23:56 Urine Urobilinogen NEGATIVE mg/dL (<2.0) 02/24/20 23:56 Ur Leukocyte Esterase NEGATIVE (NEGATIVE) 02/24/20 23:56 Urine WBC (Auto) 0 /HPF 02/24/20 23:56 Urine RBC (Auto) 1 /HPF 02/24/20 23:56 Squamous Epi Cells Auto <1 /HPF 02/24/20 23:56 Urine Mucus (Auto) RARE /LPF 02/24/20 23:56 Urine Ascorbic Acid NEGATIVE (NEGATIVE) 02/24/20 23:56 02/24/20 23:56 Troponin I < 0.012 Impressions: Abdomen/Pelvis CT 02/25/20 00:34 IMPRESSION: Mild dilatation of small bowel loops in the left hemiabdomen, with somewhat gradual transition to normal small bowel diameter at the level of the left lower quadrant and upper pelvis. There is feces-like material within the small bowel at this gradual transition. Findings are suspicious for low-grade small bowel obstruction. A similar appearance is seen on the prior study, though the small bowel is slightly less dilated on this exam. KUB X-Ray 02/25/20 12:13 IMPRESSION: SATISFACTORY POSITION OF THE NASOGASTRIC TUBE. KUB X-Ray 02/25/20 17:45 IMPRESSION: Indeterminate bowel gas pattern. Moderate colonic stool load. copyright 2011 [employer]- All Rights Reserved Abdomen X-Ray 02/26/20 07:00 IMPRESSION: Nonobstructive bowel gas pattern. Abdomen X-Ray 02/27/20 07:00 IMPRESSION: NO RADIOGRAPHIC EVIDENCE FOR ACUTE ABDOMINAL DISEASE. Stroke Is this a Stroke Patient?: No Acute Heart Failure Is this a Heart Failure Patient?: No
== END 2020-02-28 11:26 | disposition home or self-care (01) | DRG 390 ==
LOC: ER 22:22 → EH 02-25 09:46 → 5 02-25 16:27
PROVIDERS: ADMIT Internal Medicine; ATTEND Internal Medicine
PROC: 3E0234Z Introduction of Serum, Toxoid and Vaccine into Muscle, Percutaneous Approach (ICD-10-PCS; principal; 2020-02-28)
DX: K56.600 Partial intestinal obstruction, unspecified as to cause (principal); E86.0 Dehydration; D72.829 Elevated white blood cell count, unspecified; I10 Essential (primary) hypertension; Z86.73 Personal history of transient ischemic attack (TIA), and cerebral infarction without residual deficits; E11.9 Type 2 diabetes mellitus without complications; Z90.710 Acquired absence of both cervix and uterus; E78.5 Hyperlipidemia, unspecified; M13.842 Other specified arthritis, left hand; E03.9 Hypothyroidism, unspecified; M13.841 Other specified arthritis, right hand; Z79.84 Long term (current) use of oral hypoglycemic drugs; Z88.8 Allergy status to other drugs, medicaments and biological substances; Z79.890 Hormone replacement therapy; Z23 Encounter for immunization
CPT/HCPCS: 36415; 74018; 74019; 74177; 80053; 81001; 82550; 82962; 83036; 83605; 83690; 83735; 84484; 85025; 85610; 90471; 90686; 93005; 93010; 96361; 96374; 99285; G0008; J0360; J1644; J2405; J3490; J7030; J7120; S0028

== ENCOUNTER 2020-04-28 06:27 | Day surgery (SDC) | payer MEDICARE, OTHER ==
[~2020-04-28 06:27] MED LIST: BUPIVACAINE HCL 0.75% INJ/PF (7.5 MG/1 ML) 10 ML SDV OD PRN; KETOROLAC TROMETHAMINE 0.45% 4 DROP/0.4 ML DROPERETTE OD PRN; LIDOCAINE 4% INJ/PF (40 MG/ML) 5 ML AMPUL OD PRN
[2020-04-28] MEDS ORDERED: EPINEPHRINE INJ/PF 1 MG/1 ML AMPULE ONE (06:52)
[2020-04-28] MEDS ORDERED: LIDOCAINE 1% INJ-PF (10 MG/ML) 30 ML SDV ONE (06:52)
[2020-04-28] MEDS ORDERED: CHONDR SU A NA/HYALUR INTRAOC KIT (SURGICARE) ONE (06:53)
[2020-04-28] MEDS: TETRACAINE HCL 0.5% OPH SOLN 4 ML OD PRN ×2 (07:00→07:25)
[2020-04-28] MEDS: TROPICAMIDE 1% OPH SOLN 15 ML OD PRN ×3 (07:00→07:25)
[2020-04-28] MEDS: BESIFLOXACIN HCL 0.6% OPH SUSP 5 ML BOTTLE OD PRN ×4 (07:00→08:05)
[2020-04-28] MEDS: CYCLOPENTOLATE 0.2%/PHENYLEPHRINE 1% OPH SOLN 2 ML OD PRN ×3 (07:00→07:25)
[2020-04-28] MEDS ORDERED: MIDAZOLAM 2 MG/2 ML INJ ONE (07:19)
[2020-04-28] MEDS: DORZOLAMIDE HCL 2%/TIMOLOL MALEAT 0.5% OPH SOLN 10 ML OD PRN ×2 (08:05)
[2020-04-28] MEDS: PREDNISOLONE ACETATE 1% OPH SUSP 5 ML OD PRN ×2 (08:05)
--- NOTE | 2020-04-28 12:46 | Operative Report ---
Operative Report-[facility] Operative Report: DATE OF SURGERY: 04/28/2020 PREOPERATIVE DIAGNOSIS: CATARACT, RIGHT EYE. POSTOPERATIVE DIAGNOSIS: CATARACT, RIGHT EYE. PROCEDURE PERFORMED: PHACOEMULSIFICATION WITH POSTERIOR CHAMBER INTRAOCULAR LENS, RIGHT EYE. Intraocular Lens Model : DC hutchison 20.0 Total Phaco Time: 4.09 CDE SURGEON: VIDAL MARTINES MD ANESTHESIA: TOPICAL WITH MAC. INDICATIONS FOR SURGERY: Difficulty reading road signs. PROCEDURE: The patient was brought to the Operating Room and placed on the operative table. Following tetracaine drops, topical anesthesia was administered. This consisted of instrument wipe pledgets soaked in a solution of 4% Xylocaine mixed with 0.75% Marcaine in a 1:2 ratio. A 2 x 1 cm pledget was placed in the superior fornix. A 1 x 1 cm pledget was placed in the inferior fornix. The eye was patched shut for 5 minutes. The patch was removed. The eye was sterilely prepped and draped in the usual manner. Lid speculum was placed in the eye. The pledgets were removed. 4-0 black silk sutures were placed around the superior and the inferior rectus muscles to be used as traction. A conjunctival peritomy was made at the 10 o'clock position. Hemostasis was obtained with bipolar cautery. A posterior limbal groove was created using a crescent knife and dissected anteriorly towards the cornea. A sharp point blade was used to create a paracentesis site at the 2 o'clock position. 0.2 cc non preserved Lidocaine was injected into the anterior chamber. A 2.4 mm keratome was used to enter the anterior chamber through the groove. Viscoelastic was injected into the anterior chamber. An anterior capsulotomy was performed using Utrata forceps in a capsulorrhexis fashion. Hydrodissection and hydrodelineation were performed. Phacoemulsification was performed in [id number] technique. Following this, the I/A unit was used to remove residual cortex. Viscoelastic was injected into the capsular bag. The Intraocular lens was placed in the capsular bag. The I/A unit was used to remove residual viscoelastic. The wound was seen to be watertight under high and low pressure, and no sutures were placed. The intraocular lens was well centered. The pressure was adjusted in the eye to normal pressure. The 4-0 black silk sutures and lid speculum were removed. The eye was shielded after Besivance. prednisolone, and Cosopt drops were placed. The patient tolerated the procedure well and was sent to the Recovery Room in good condition.
== END 2020-04-28 08:39 | disposition home or self-care (01) ==
LOC: SC 06:27
PROVIDERS: ATTEND Ophthalmology
DX: H25.011 Cortical age-related cataract, right eye (principal); H02.831 Dermatochalasis of right upper eyelid; H02.834 Dermatochalasis of left upper eyelid; E11.36 Type 2 diabetes mellitus with diabetic cataract; Z79.84 Long term (current) use of oral hypoglycemic drugs; E03.9 Hypothyroidism, unspecified; I10 Essential (primary) hypertension; E78.00 Pure hypercholesterolemia, unspecified; Z79.899 Other long term (current) drug therapy
CPT/HCPCS: 66984; 82962; 00142; V2632; J2250; J3490 ×5; A9270; J0171; 142

== ENCOUNTER 2020-05-19 07:40 | Day surgery (SDC) | payer MEDICARE, OTHER ==
[~2020-05-19 07:40] MED LIST changes: -BUPIVACAINE HCL 0.75% INJ/PF (7.5 MG/1 ML) 10 ML SDV OD PRN; +BUPIVACAINE HCL 0.75% INJ/PF (7.5 MG/1 ML) 10 ML SDV OS PRN; +CHONDR SU A NA/HYALUR INTRAOC KIT (SURGICARE) ONE; +DORZOLAMIDE HCL 2%/TIMOLOL MALEAT 0.5% OPH SOLN 10 ML OS PRN; +EPINEPHRINE INJ/PF 1 MG/1 ML AMPULE ONE; -KETOROLAC TROMETHAMINE 0.45% 4 DROP/0.4 ML DROPERETTE OD PRN; +KETOROLAC TROMETHAMINE 0.45% 4 DROP/0.4 ML DROPERETTE OS PRN; +LIDOCAINE 1% INJ-PF (10 MG/ML) 30 ML SDV ONE; -LIDOCAINE 4% INJ/PF (40 MG/ML) 5 ML AMPUL OD PRN; +LIDOCAINE 4% INJ/PF (40 MG/ML) 5 ML AMPUL OS PRN; +PREDNISOLONE ACETATE 1% OPH SUSP 5 ML OS PRN
[2020-05-19] MEDS: TROPICAMIDE 1% OPH SOLN 15 ML OS PRN ×3 (08:07→08:42)
[2020-05-19] MEDS: TETRACAINE HCL 0.5% OPH SOLN 4 ML OS PRN ×3 (08:07→09:26)
[2020-05-19] MEDS: CYCLOPENTOLATE 0.2%/PHENYLEPHRINE 1% OPH SOLN 2 ML OS PRN ×3 (08:08→08:42)
[2020-05-19] MEDS: BESIFLOXACIN HCL 0.6% OPH SUSP 5 ML BOTTLE OS PRN ×3 (08:08→09:49)
[2020-05-19] MEDS ORDERED: MIDAZOLAM 2 MG/2 ML INJ ONE (09:02)
--- NOTE | 2020-05-19 15:52 | Operative Report ---
Operative Report-[facility] Operative Report: DATE OF SURGERY: 05/19/2020 PREOPERATIVE DIAGNOSIS: CATARACT, LEFT EYE. POSTOPERATIVE DIAGNOSIS: CATARACT, LEFT EYE. PROCEDURE PERFORMED: PHACOEMULSIFICATION WITH POSTERIOR CHAMBER INTRAOCULAR LENS, LEFT EYE. Intraocular Lens Model : DC hutchison 20.5 Total Phaco Time: 37.1 sec SURGEON: VIDAL MARTINES MD ANESTHESIA: TOPICAL WITH MAC. INDICATIONS FOR SURGERY: Difficultly driving at night PROCEDURE: The patient was brought to the Operating Room and placed on the operative table. Following tetracaine drops, topical anesthesia was administered. This consisted of instrument wipe pledgets soaked in a solution of 4% Xylocaine mixed with 0.75% Marcaine in a 1:2 ratio. A 2 x 1 cm pledget was placed in the superior fornix. A 1 x 1 cm pledget was placed in the inferior fornix. The eye was patched shut for 5 minutes. The patch was removed. The eye was sterilely prepped and draped in the usual manner. Lid speculum was placed in the eye. The pledgets were removed. 4-0 black silk sutures were placed around the superior and the inferior rectus muscles to be used as traction. A conjunctival peritomy was made at the 10 o'clock position. Hemostasis was obtained with bipolar cautery. A posterior limbal groove was created using a crescent knife and dissected anteriorly towards the cornea. A sharp point blade was used to create a paracentesis site at the 2 o'clock position. 0.2 cc non preserved Lidocaine was injected into the anterior chamber. A 2.4 mm keratome was used to enter the anterior chamber through the groove. Viscoelastic was injected into the anterior chamber. An anterior capsulotomy was performed using Utrata forceps in a capsulorrhexis fashion. Hydrodissection and hydrodelineation were performed. Phacoemulsification was performed in [id number] technique. Following this, the I/A unit was used to remove residual cortex. Viscoelastic was injected into the capsular bag. The Intraocular lens was placed in the capsular bag. The I/A unit was used to remove residual viscoelastic. The wound was seen to be watertight under high and low pressure, and no sutures were placed. The intraocular lens was well centered. The pressure was adjusted in the eye to normal pressure. The 4-0 black silk sutures and lid speculum were removed. The eye was shielded after Besivance,prednisolone, and Cosopt drops were placed. The patient tolerated the procedure well and was sent to the Recovery Room in good condition.
== END 2020-05-19 10:21 ==
LOC: SC 07:40
PROVIDERS: ATTEND Ophthalmology
DX: H25.012 Cortical age-related cataract, left eye (principal); Z96.1 Presence of intraocular lens; E11.36 Type 2 diabetes mellitus with diabetic cataract; Z79.84 Long term (current) use of oral hypoglycemic drugs; I10 Essential (primary) hypertension; E78.00 Pure hypercholesterolemia, unspecified; E03.9 Hypothyroidism, unspecified
CPT/HCPCS: 66984; 82962; V2632; J2250; J3490 ×5; A9270; J0171